=== PATIENT | male | born 1945 | race Caucasian/White ===

== ENCOUNTER → 2016-07-22 | Outpatient (CLI) | payer OTHER, MEDICARE ==
[~2016-07-22] MED LIST: ASCO500T3 PO; ASPI81TA57 PO; ATOR-26 PO; CALC-393 PO; CYAN500T13 PO; DILT180C PO; HYDR25TA5 PO; IBUP-103 PO; LSN40 PO; MAGNESIUM PO; MULT-506 PO; OMEP20TA PO; VITA400C3 PO
[2016-07-22 13:39] LABS: ALT/SGPT 34 U/L (12-78); BLOOD UREA NITROGEN 19 mg/dl (7-18); BUN/CREATININE RATIO 17.4 (10-20); CALCIUM 8.9 mg/dl (8.5-10.1); CARBON DIOXIDE 33 mmol/L (21-32); CHLORIDE 106 mmol/L (98-107); CHOLESTEROL 131 mg/dl (0-200); GLUCOSE 93 mg/dl (70-99); POTASSIUM 3.8 mmol/L (3.5-5.1); SODIUM 144 mmol/L (136-145); TRIGLYCERIDES 179 mg/dl (0-150); VERY LOW DENSITY LIPOPROT CALC 36 mg/dl
[2016-07-22 13:43] LABS: ALB/GLOB RATIO 1.1 (0.9-2); ALKALINE PHOSPHATASE 112 U/L (45-117); AST/SGOT 20 U/L (15-37); CHOLESTEROL/HDL RATIO 3.6; HDL CHOLESTEROL 36 mg/dl; LDL CHOLESTEROL CALCULATED 59 mg/dl
== END | disposition home or self-care (01) ==
LOC: C.LABPVFM 08:10
PROVIDERS: ATTEND Nurse Practitioner Family
DX: E78.5 Hyperlipidemia, unspecified (principal); I10 Essential (primary) hypertension

== ENCOUNTER → 2017-02-03 | Outpatient (CLI) | payer OTHER, MEDICARE ==
[2017-02-03 13:32] LABS: ALKALINE PHOSPHATASE 118 U/L (45-117); ALT/SGPT 43 U/L (12-78); BLOOD UREA NITROGEN 23 mg/dl (7-18); BUN/CREATININE RATIO 19.1 (10-20); CALCIUM 9.1 mg/dl (8.5-10.1); CARBON DIOXIDE 31 mmol/L (21-32); CHLORIDE 105 mmol/L (98-107); CHOLESTEROL 153 mg/dl (0-200); CHOLESTEROL/HDL RATIO 4.5; GLUCOSE 100 mg/dl (70-99); HDL CHOLESTEROL 34 mg/dl; LDL CHOLESTEROL CALCULATED 70 mg/dl; POTASSIUM 3.7 mmol/L (3.5-5.1); SODIUM 141 mmol/L (136-145); TRIGLYCERIDES 243 mg/dl (0-150); VERY LOW DENSITY LIPOPROT CALC 49 mg/dl
[2017-02-03 13:35] LABS: ALB/GLOB RATIO 1.1 (0.9-2); AST/SGOT 28 U/L (15-37)
== END | disposition home or self-care (01) ==
LOC: C.LABPVFM 08:27
PROVIDERS: ATTEND Nurse Practitioner Family
DX: E78.5 Hyperlipidemia, unspecified (principal); I10 Essential (primary) hypertension

== ENCOUNTER → 2017-07-21 | Outpatient (CLI) | payer OTHER, MEDICARE | END | disposition home or self-care (01) | LOC: C.LAB1850 07:58 | PROVIDERS: ATTEND Nurse Practitioner Family | DX: R76.8 Other specified abnormal immunological findings in serum (principal) ==

== ENCOUNTER 2020-11-22 11:32 | Inpatient (IN) ==
[2020-11-22 13:39] LABS: Basophils # (auto) 0.04 K/uL (0-0.2); Basophils % (auto) 0.3 %; Eosinophils # (auto) 0.27 K/uL (0-0.5); Eosinophils % (auto) 2.2 %; Hematocrit (blood only) 44.6 % (42-52); Hemoglobin 15.1 g/dL (14.0-18.0); Immature Granulocytes # (auto) 0.04 K/uL (0.00-0.02); Immature Granulocytes % (auto) 0.3 %; Lymphocytes # (auto) 0.86 K/uL (1.2-3.4); Lymphocytes % (auto) 6.9 %; Mean Corpuscular Hemoglobin 31.5 pg (25-34); Mean Corpuscular Hgb Conc 33.9 g/dL (32-36); Mean Corpuscular Volume 92.9 fL (80-100); Mean Platelet Volume 11.3 fL (7.4-10.4); Monocytes # (auto) 1.28 K/uL (0.11-0.59); Monocytes % (auto) 10.3 %; Neutrophils # (auto) 9.95 K/uL (1.4-6.5); Platelet Count 327 K/uL (130-400); RDW Coefficient of Variation 15.3 % (11.5-14.5); RDW Standard Deviation 51.9 fL (36.4-46.3); White Blood Count 12.44 K/uL (4.8-10.8)
--- NOTE | 2020-11-22 14:10 | Emergency Department Note ---
History of Present Illness General Chief complaint: Weakness Stated complaint: NOT EATING, ALWAYS SLEEPING, COLD, PAIN Time Seen by Provider: 11/22/20 13:52 Source: patient and family ( who is at the bedside) Mode of arrival: ambulatory Limitations: no limitations History of Present Illness Maximum Pain Intensity: 0 This patient is a 75-year-old male who comes in after not feeling well since the beginning of October. He said he started with an ear infection which was inner and outer. 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 He finished steroids last week the Ballard's palsy is gotten significantly better but he just does not feel well has not been eating or drinking much she has decreased energ y. No focal numbness or weakness had a little bit of a cough. No fever or chills. He says he cannot get in with his primary care doctor so he came here. No change in vision. No rash no known tick bite. He said at one point he was having chest pain in the evening for 2 weeks but none recently. He has had his Covid vaccine. He says his ear and head hurt at times but denies a headache now. He sees says is very sensitive to cold. No sick contacts. Home Medications Medication Instructions Recorded Confirmed Type Lactobacillus 1 cap PO QAM cap 11/19/18 11/22/20 History acidophilus-Bifidobac.animalis 31 billion cell capsule cetirizine 10 mg tablet 10 mg PO DAILY PRN #90 tab 11/19/18 11/22/20 Rx cyanocobalamin (vitamin B-12) 100 100 mcg PO QAM tab 11/19/18 11/22/20 History mcg tablet ibuprofen 200 mg tablet 200 mg PO Q6H PRN tab 11/19/18 11/22/20 History multivitamin with minerals 1 tab PO QAM tab 11/19/18 11/22/20 History (Multiple Vitamin-Minerals) omeprazole 20 mg capsule,delayed 20 mg PO QAM cap 11/19/18 11/22/20 History release vitamin E (dl, acetate) 400 unit 400 units PO QAM 11/19/18 11/22/20 History capsule ascorbic acid (vitamin C) 500 mg 500 mg PO QAM 05/07/19 11/22/20 History tablet hydrocortisone 2.5 % topical cream 1 appln TOP BID PRN #30 gm 06/16/19 11/22/20 Rx ketoconazole 2 % topical cream 1 appln TOPICAL DAILY #30 gm 06/16/19 11/22/20 Rx calcium carbonate 600 mg calcium 600 mg PO QAM tab 09/04/19 11/22/20 History (1,500 mg) tablet atorvastatin 80 mg tablet 80 mg PO QPM #90 tab 02/27/20 11/22/20 Rx metoprolol succinate 25 mg 12.5 mg PO DAILY #45 tab 08/09/20 11/22/20 Rx tablet,extended release 24 hr promethazine-DM 6.25 mg-15 mg/5 mL 5 ml PO Q6H PRN #473 ml 10/06/20 11/22/20 Rx oral syrup lisinopril 40 mg tablet 40 mg PO DAILY #90 tab 10/14/20 11/22/20 Rx potassium chloride 20 mEq 20 meq PO DAILY #90 tab 11/03/20 11/22/20 Rx tablet,extended release(part/cryst) hydrochlorothiazide 25 mg tablet 12.5 mg PO QAM tab 11/04/20 11/22/20 History acetazolamide 250 mg tablet 250 mg PO DAILY 11/22/20 11/22/20 History Allergies Allergy/AdvReac Type Severity Reaction Status Date / Time amlodipine AdvReac Mild nausea Verified 11/22/20 20:10 Past Med/Surg History Medical History (Updated 11/22/20 @ 19:29 by Issac Edmondson MD) Family history of coronary artery disease GERD (gastroesophageal reflux disease) GI (gastrointestinal bleed) (12/20/13) Hearing deficit LEFT JORGENSEN History of TIA (transient ischemic attack) 3O YEARS AGO HTN (hypertension) Hyperlipidemia Lower GI bleed Meniere's disease Osteoarthritis Surgical History History of arthroscopy of both knees History of arthroscopy of shoulder History of colonoscopy History of hernia repair X 2 History of knee replacement BL History of total knee arthroplasty Status post laparoscopic hernia repair Family History Mother Stroke Diabetes Father FHx: deafness or hearing loss Hypertension Scarlet fever Heart disease Myocardial infarction Other Coronary heart disease Family history of coronary artery disease Denies family history of Ovarian cancer Prostate cancer Breast cancer Bleeding disorder Colorectal cancer History of malignant hyperthermia Social History Smoking Status: Never smoker Second Hand Exposure: Yes ( A CHILD); Hx Alcohol Use: No Hx Substance Use: No Preferred Language: Azerbaijani Communication Ability: Effective Credit Assistant Required: No Beliefs That Will Affect Care: None marital status: Current Living Situation: Spouse current occupational status: retired Other Information That Helps Us Care for You: No Feels Safe at Home: Yes caffeine: Yes Dental Care, Regularly: No Physical Activity Frequency: 3-4 Times per Week Seatbelt Use: always Sunscreen Use: No Assistive Devices: None, Glasses and Hearing Aid - Left Review of Systems A total of 10 systems reviewed and were otherwise negative Physical Exam Vital Signs Vital Signs - 24 hr 11/22/20 11:39 11/22/20 14:47 11/22/20 16:45 Temperature 36.5 C Temperature Source Temporal Artery Scan Pulse Rate 67 60 Pulse Rate [Left Apical] 67 Pulse Rate from SpO2 Sensor 60 Pulse Rhythm Regular Pulse Rhythm [Left Apical] Regular Pulse Strength Normal Pulse Strength [Left Apical] Normal Respiratory Rate 16 18 14 Respiratory Effort / Characteristics Non-Labored Non-Labored Spontaneous Respiratory Depth Normal Normal Respiratory Pattern Regular Regular Blood Pressure 110/70 128/76 Blood Pressure [Left Arm] 123/65 Blood Pressure Mean 83 93 Blood Pressure Mean [Left Arm] 84 Blood Pressure Position Sitting Blood Pressure Position [Left Arm] Lying Pulse Oximetry 98 99 99 Oxygen Delivery Method Room Air Room Air Sepsis Recent Fever Within 48 Hours No Sepsis New/Unexplained Change in Mental Status N/A Sepsis Action Taken by Nursing No Action Required 11/22/20 16:47 11/22/20 17:00 11/22/20 17:30 Temperature Temperature Source Pulse Rate 64 66 63 Pulse Rate [Left Apical] Pulse Rate from SpO2 Sensor 63 76 Pulse Rhythm Pulse Rhythm [Left Apical] Pulse Strength Pulse Strength [Left Apical] Respiratory Rate 14 16 9 L Respiratory Effort / Characteristics Respiratory Depth Respiratory Pattern Blood Pressure 123/65 125/68 122/79 Blood Pressure [Left Arm] Blood Pressure Mean 84 87 93 Blood Pressure Mean [Left Arm] Blood Pressure Position Blood Pressure Position [Left Arm] Pulse Oximetry 99 99 Oxygen Delivery Method Room Air Sepsis Recent Fever Within 48 Hours Sepsis New/Unexplained Change in Mental Status Sepsis Action Taken by Nursing General: Well developed well nourished older male who appears in no acute distress, breathing comfortably on room air. Normal speech HEENT: Normal cephalic atraumatic. Pupils are equal round and reactive to light. Extraocular movements are intact. Oropharynx is pink with moist mucous membranes. No swelling of the mouth lips or tongue. No significant tenderness over the mastoid. The pinna is normal. No facial asymmetry or droop. He is able to close his right eye. Does seem slightly weak in the forehead compared to the left. He has no asymmetry of his nasolabial fold or smile. Neck: Supple with a midline trachea. No meningeal signs or stiffness, no JVD or bruits. No Stridor. Chest: Clear to auscultation bilaterally. No wheezes or rhonchi. No increased work of breathing. Heart: Regular rate and rhythm without murmurs or gallops. Abdomen: Soft nontender, nondistended without rebound guarding or rigidity. Extremities: No cyanosis clubbing or edema. No calf tenderness or assymetry Spine/Back. Non tender to palpation. No CVA tenderness Skin: Good turgor without rashes. Neurologic exam: Cranial nerves two through 12 are intact. Motor and sensation are intact and symmetrical throughout. Course Administered Medications Atorvastatin Calcium (Atorvastatin 40 Mg Tab) 80 mg PO QPM MARISEL Stop: 12/22/20 20:59 Last Admin: 11/22/20 20:47 Dose: 80 mg Documented by: [id number] Doxycycline Hyclate (Doxycycline Hyclate 100 Mg Cap) 100 mg PO BID MARISEL Stop: 12/02/20 20:59 Last Admin: 11/22/20 20:47 Dose: 100 mg Documented by: [id number] Heparin Sodium (Porcine) (Heparin Sod 5,000 Unit/0.5 Ml Vial) 5,000 units SQ Q8 MARISEL Stop: 12/22/20 21:59 Last Admin: 11/22/20 20:51 Dose: Not Given Documented by: [id number] Sodium Chloride (Nss 1000ml) 1,000 mls @ 100 mls/hr IV .Q10H MARISEL Stop: 12/22/20 19:49 Last Admin: 11/22/20 20:16 Dose: 100 mls/hr Documented by: [id number] Discontinued Medications Sodium Chloride (Nss 1000ml) 1,000 mls @ 999 mls/hr IV .Q1H1M ONE Stop: 11/22/20 16:16 Last Infusion: 11/22/20 16:45 Dose: 0 mls/hr Documented by: [id number] Admin: 11/22/20 15:38 Dose: 999 mls/hr Documented by: [id number] Medical Decision Making Differential Diagnosis Ballard's palsy, dehydration, cardiac disease, infection, mastoiditis, tickborne illness, cardiac disease, electrolyte or metabolic abnormality, Covid Medical Records Attestation: I reviewed the patient's medical records. Home Medications Current Medication List: was personally reviewed by mt Laboratory Data Attestation: I reviewed the patient's lab results. Result diagrams: 11/22/20 13:18 11/22/20 14:15 Lab Results 11/22/20 11/22/20 11/22/20 Range/Units 13:18 13:18 13:28 WBC 12.44 H (4.8-10.8) K/uL RBC 4.80 (4.7-6.1) M/uL Hgb 15.1 (14.0-18.0) g/dL Hct 44.6 (42-52) % MCV 92.9 (80-100) fL MCH 31.5 (25-34) pg MCHC 33.9 (32-36) g/dL RDW Std Deviation 51.9 H (36.4-46.3) fL RDW Coeff of Zulma 15.3 H (11.5-14.5) % Plt Count 327 (130-400) K/uL MPV 11.3 H (7.4-10.4) fL Immature Gran % (Auto) 0.3 % Neut % (Auto) 80.0 % Lymph % (Auto) 6.9 % Andrew % (Auto) 10.3 % Eos % (Auto) 2.2 % Baso % (Auto) 0.3 % Neut # (Auto) 9.95 H (1.4-6.5) K/uL Lymph # (Auto) 0.86 L (1.2-3.4) K/uL Andrew # (Auto) 1.28 H (0.11-0.59) K/uL Eos # (Auto) 0.27 (0-0.5) K/uL Baso # (Auto) 0.04 (0-0.2) K/uL Immature Gran # (Auto) 0.04 H (0.00-0.02) K/uL Sodium Cancelled Potassium Cancelled Chloride Cancelled Carbon Dioxide Cancelled Anion Gap Cancelled BUN Cancelled Creatinine Cancelled Est Cr Clr Drug Dosing Cancelled Est GFR ( Amer) Cancelled Est GFR (Non-Af Amer) Cancelled BUN/Creatinine Ratio Cancelled Glucose Cancelled Calcium Cancelled Total Bilirubin Cancelled AST Cancelled ALT Cancelled Alkaline Phosphatase Cancelled Troponin I Cancelled Total Protein Cancelled Albumin Cancelled Globulin Cancelled Albumin/Globulin Ratio Cancelled TSH Cancelled Urine Color Urine Appearance (Clear) Urine pH (4.5-7.5) Ur Specific [place] (1.000-1.030) Urine Protein (Negative) Urine Glucose (UA) (Negative) Urine Ketones (Negative) Urine Blood (Negative) Urine Nitrite (Negative) Urine Bilirubin (Negative) Urine Urobilinogen (Negative) Ur Leukocyte Esterase (Negative) Urine WBC (Auto) (0-5) /hpf Urine RBC (Auto) (0-4) /hpf U Hyaline Cast (Auto) (0-5) /lpf U Epithel Cells (Auto) (0-5) /lpf Urine Bacteria (Auto) (Negative) Ur Renal Epithelial Cell WBC Casts (0) /lpf Anaplasma Smear See Comment Lyme Disease IgG Ab (Negative) Lyme Disease IgM Ab (Negative) COVID-19 Eval Order SARS-CoV-2 (PCR) (Negative) 11/22/20 11/22/20 11/22/20 Range/Units 14:15 14:15 14:30 WBC (4.8-10.8) K/uL RBC (4.7-6.1) M/uL Hgb (14.0-18.0) g/dL Hct (42-52) % MCV (80-100) fL MCH (25-34) pg MCHC (32-36) g/dL RDW Std Deviation (36.4-46.3) fL RDW Coeff of Zulma (11.5-14.5) % Plt Count (130-400) K/uL MPV (7.4-10.4) fL Immature Gran % (Auto) % Neut % (Auto) % Lymph % (Auto) % Andrew % (Auto) % Eos % (Auto) % Baso % (Auto) % Neut # (Auto) (1.4-6.5) K/uL Lymph # (Auto) (1.2-3.4) K/uL Andrew # (Auto) (0.11-0.59) K/uL Eos # (Auto) (0-0.5) K/uL Baso # (Auto) (0-0.2) K/uL Immature Gran # (Auto) (0.00-0.02) K/uL Sodium 145 Potassium 3.3 L Chloride 120 H Carbon Dioxide 11 L Anion Gap 15.0 H BUN 133 H Creatinine 3.67 H Est Cr Clr Drug Dosing 18.5 Est GFR ( Amer) 17.9 Est GFR (Non-Af Amer) 15.4 BUN/Creatinine Ratio 36.3 H Glucose 103 H Calcium 8.8 Total Bilirubin 0.3 AST 7 L ALT 32 Alkaline Phosphatase 83 Troponin I < 0.015 Total Protein 6.8 Albumin 3.6 Globulin 3.2 Albumin/Globulin Ratio 1.1 TSH 0.495 Urine Color Yellow Urine Appearance Clear (Clear) Urine pH 5.5 (4.5-7.5) Ur Specific [place] 1.016 (1.000-1.030) Urine Protein 1+ H (Negative) Urine Glucose (UA) Negative (Negative) Urine Ketones Trace H (Negative) Urine Blood Negative (Negative) Urine Nitrite Negative (Negative) Urine Bilirubin Negative (Negative) Urine Urobilinogen Negative (Negative) Ur Leukocyte Esterase Negative (Negative) Urine WBC (Auto) 1-5 (0-5) /hpf Urine RBC (Auto) 0-4 (0-4) /hpf U Hyaline Cast (Auto) 5-10 H (0-5) /lpf U Epithel Cells (Auto) >30 H (0-5) /lpf Urine Bacteria (Auto) Negative (Negative) Ur Renal Epithelial Cell Not Reportable WBC Casts 5-10 H (0) /lpf Anaplasma Smear Lyme Disease IgG Ab Negative (Negative) Lyme Disease IgM Ab Negative (Negative) COVID-19 Eval Order SARS-CoV-2 (PCR) (Negative) 11/22/20 11/22/20 Range/Units 15:37 15:37 WBC (4.8-10.8) K/uL RBC (4.7-6.1) M/uL Hgb (14.0-18.0) g/dL Hct (42-52) % MCV (80-100) fL MCH (25-34) pg MCHC (32-36) g/dL RDW Std Deviation (36.4-46.3) fL RDW Coeff of Zulma (11.5-14.5) % Plt Count (130-400) K/uL MPV (7.4-10.4) fL Immature Gran % (Auto) % Neut % (Auto) % Lymph % (Auto) % Andrew % (Auto) % Eos % (Auto) % Baso % (Auto) % Neut # (Auto) (1.4-6.5) K/uL Lymph # (Auto) (1.2-3.4) K/uL Andrew # (Auto) (0.11-0.59) K/uL Eos # (Auto) (0-0.5) K/uL Baso # (Auto) (0-0.2) K/uL Immature Gran # (Auto) (0.00-0.02) K/uL Sodium Potassium Chloride Carbon Dioxide Anion Gap BUN Creatinine Est Cr Clr Drug Dosing Est GFR ( Amer) Est GFR (Non-Af Amer) BUN/Creatinine Ratio Glucose Calcium Total Bilirubin AST ALT Alkaline Phosphatase Troponin I Total Protein Albumin Globulin Albumin/Globulin Ratio TSH Urine Color Urine Appearance (Clear) Urine pH (4.5-7.5) Ur Specific [place] (1.000-1.030) Urine Protein (Negative) Urine Glucose (UA) (Negative) Urine Ketones (Negative) Urine Blood (Negative) Urine Nitrite (Negative) Urine Bilirubin (Negative) Urine Urobilinogen (Negative) Ur Leukocyte Esterase (Negative) Urine WBC (Auto) (0-5) /hpf Urine RBC (Auto) (0-4) /hpf U Hyaline Cast (Auto) (0-5) /lpf U Epithel Cells (Auto) (0-5) /lpf Urine Bacteria (Auto) (Negative) Ur Renal Epithelial Cell WBC Casts (0) /lpf Anaplasma Smear Lyme Disease IgG Ab (Negative) Lyme Disease IgM Ab (Negative) COVID-19 Eval Order Covid19 at [facility] SARS-CoV-2 (PCR) NEGATIVE (Negative) Imaging Data Attestation: I personally reviewed and interpreted this imaging study as follows: Radiologist's Impression: Chest X-Ray 11/22/20 11:58 XR chest 1V portable CLINICAL HISTORY: weakness COMPARISON STUDY: Chest radiograph December 20, 2013. FINDINGS: Lung volumes are diminished. There is no pneumothorax or pleural effusion. Cardiomediastinal silhouette is stable. Basilar opacities are noted. There is interstitial thickening within the left lower lung. IMPRESSION: Interstitial thickening and bibasilar opacities. The findings favor an infectious process. Pulmonary edema could appear similar although is considered less likely. Radiographic follow up to ensure resolution is recommended. ACT 112: Negative or not required by law. Electronically signed by: Zenon Caballero M.D. 11/22/2020 2:[address] 11/22/20 14:03 CT head/brain wo con CLINICAL HISTORY: 75 years-old Male with rt headache and ear pain. Acute headache TECHNIQUE: Multiple axial CT images of the head were obtained without contrast. A dose lowering technique was utilized adhering to the principles of ALARA. CT DOSE: 690.05 mGycm COMPARISON: Head CT 08/02/2018 FINDINGS: No acute intracranial hemorrhage, midline shift, intracranial mass, hydro cephalus, territorial ischemia or abnormal extra-axial collection. Age-related involutional changes. Cerebral vascular calcifications. Mild white matter hypodensities suggestive of chronic microvascular ischemic disease. The calvarium is intact. The paranasal sinuses, mastoid air cells, and middle ear cavities are clear. IMPRESSION: No acute intracranial abnormality. ACT 112: Negative or not required by law. The above report was generated using voice recognition software. It may contain grammatical, syntax or spelling errors. Electronically signed by: Renan Schumacher M.D. 11/22/2020 2:55 PM ECG Data Attestation: I personally reviewed and interpreted this ECG as follows: Indication: + weakness Rate (beats per minute): 63 ECG Intervals/blocks: + Right Bundle branch block ECG [place]: + Normal ECG ST segments: + Normal ST segments ECG Findings: no PACs or no PVCs Comparison ECG Date: from (05/09/19) Change: no significant change MDM Narrative This patient comes in as scribed above he has had generalized weakness he has a right ear infection a Ballard's palsy. This seem to be doing better. He has no neurologic deficits with exception of maybe some slight weakness of the right forehead with closure of the eye. He is afebrile here and has no headache at present has no meningeal signs or stiffness. IV access was established and he was hydrated with an IV normal saline bolus. EKG, CAT scan of the head multiple, blood testing was obtained. He was reassessed frequently. He is remained stable. His BUN and creatinine are significantly elevated and it may be prerenal but he does need to come in for the hospital. He does have some increased interstitial markings in the base and could have a CHF component as well. His CO2 is also low. He has no acute EKG changes and his potassium is normal. Nothing suggest infection. He has no acute neurologic deficits with exception of a peripheral 7th nerve palsy which is resolving. Given his renal failure, I have consulted the [facility] hospitalist to see him in ER for these measures Continuous cardiac monitoring: An order was placed in EMR for continuous cardiac monitoring. He was noted to be in normal sinus rhythm with a rate of 65. Impression & Plan Acute renal failure, Weakness, CHF (congestive heart failure), H/O Ballard's palsy Discharge Plan Visit Data Chief Complaint: Weakness Stated Complaint: NOT EATING, ALWAYS SLEEPING, COLD, PAIN ED Provider: Issac Edmondson Discharge Problem: Acute renal failure, Weakness, CHF (congestive heart failure), H/O Ballard's palsy Patient Disposition: Admitted As Inpatient Discharge Instructions Interventions: ED Discharge Assessment Last Done: 11/22/20 19:25 Discharge Problem: Acute renal failure Qualifiers: Acute renal failure type: unspecified Qualified Code(s): N17.9 - Acute kidney failure, unspecified CHF (congestive heart failure) Qualifiers: Heart failure type: unspecified Heart failure chronicity: acute Qualified Code(s): I50.9 - Heart failure, unspecified
[2020-11-22 14:49] LABS: Alanine Aminotransferase 32 U/L (12-78); Albumin Level 3.6 gm/dl (3.4-5.0); Aspartate Aminotransferase 7 U/L (15-37); BUN Creatinine Ratio 36.3 (10-20); Blood Urea Nitrogen 133 mg/dl (7-18); Calcium 8.8 mg/dl (8.5-10.1); Carbon Dioxide 11 mmol/L (21-32); Chloride 120 mmol/L (98-107); Creatinine Clr Calc Pharmacy 18.5 ml/min; Est GFR (African American) 17.9 ml/min; Est GFR (Non-African American) 15.4 ml/min; Glucose 103 mg/dl (70-99); Potassium 3.3 mmol/L (3.5-5.1); Sodium 145 mmol/L (136-145)
[2020-11-22 14:53] LABS: Appearance Urine Clear (Clear); Bacteria Urine Automated Negative (Negative); Bilirubin Urine Negative (Negative); Blood Urine Negative (Negative); Color Urine Yellow; Epithelial Cell Urine Auto >30 /lpf (0-5); Glucose Urine UA Negative (Negative); Ketones Urine Trace (Negative); Leukocyte Esterase Urine Negative (Negative); Nitrite Urine Negative (Negative); Protein Urine 1+ (Negative); RBC Urine Automated 0-4 /hpf (0-4); Specific Gravity Urine 1.016 (1.000-1.030); Urobilinogen Urine Negative (Negative); pH Urine 5.5 (4.5-7.5)
--- NOTE | 2020-11-22 14:56 | CT Scan Report ---
CT head/brain wo con CLINICAL HISTORY: 75 years-old Male with rt headache and ear pain. Acute headache TECHNIQUE: Multiple axial CT images of the head were obtained without contrast. A dose lowering tech nique was utilized adhering to the principles of ALARA. CT DOSE: 690.05 mGycm COMPARISON: Head CT 08/02/2018 FINDINGS: No acute intracranial hemorrhage, midline shift, intracranial mass, hydrocephalus, territorial ischem ia or abnormal extra-axial collection. Age-related involutional changes. Cerebral vascular calcificat ions. Mild white matter hypodensities suggestive of chronic microvascular ischemic disease. The calvarium is intact. The paranasal sinuses, mastoid air cells, and middle ear cavities are clear . IMPRESSION: No acute intracranial abnormality. ACT 112: Negative or not required by law. The above report was generated using voice recognition software. It may contain grammatical, syntax o r spelling errors. Electronically signed by: Renan Schumacher M.D. 11/22/2020 2:55 PM
[2020-11-22 14:59] LABS: Albumin Globulin Ratio 1.1 (0.9-2); Alkaline Phosphatase 83 U/L (45-117); Bilirubin,Total 0.3 mg/dl (0.2-1); Globulin 3.2 gm/dl (2.5-4.0); Thyroid Stimulating Hormone 0.495 uIu/ml (0.300-4.500); Total Protein 6.8 gm/dl (6.4-8.2); Troponin I < 0.015 ng/ml (0-0.045)
--- NOTE | 2020-11-22 15:00 | XRay Report ---
XR chest 1V portable CLINICAL HISTORY: weakness COMPARISON STUDY: Chest radiograph December 20, 2013. FINDINGS: Lung volumes are diminished. There is no pneumothorax or pleural effusion. Cardiomediastina l silhouette is stable. Basilar opacities are noted. There is interstitial thickening within the left lower lung. IMPRESSION: Interstitial thickening and bibasilar opacities. The findings favor an infectious proces s. Pulmonary edema could appear similar although is considered less likely. Radiographic follow up to ensure resolution is recommended. ACT 112: Negative or not required by law. Electronically signed by: Zenon Caballero M.D. 11/22/2020 2:58 PM
[2020-11-22] MEDS ORDERED: SODIUM CHLORIDE 0.9% 1000ML 1,000 ML IV ONE (15:16)
[2020-11-22 15:20] LABS: Lyme Ab IgG w/WB Rflx Negative (Negative); Lyme Ab IgM w/WB Rflx Negative (Negative)
--- NOTE | 2020-11-22 17:49 | History & Physical Report ---
Date of Service November 22, 2020 Assessment & Plan (1) Failure to thrive: Plan: Patient is dehydrated by exam and labs are Ballard's palsy resolving, concern for possible Lyme disease or other tickborne illness considering subsequent symptoms Admit to a monitored bed Hydrate gently with normal saline. Hold lisinopril, diuretics for now Replete potassium Check magnesium Lyme and anaplasmosis titer sent from ER. For now, would start empiric treatment with doxycycline until these are resulted PT/OT evaluation Abnormal chest x-ray findings, previously labeled as pneumonia. Will check noncontrast CT (2) Coronary artery disease: Plan: Continue medications as per outpatient including atorvastatin, metoprolol (3) Hyperlipidemia: Plan: Atorvastatin as noted above (4) Acid reflux: Plan: Omeprazole 20 mg as an outpatient, changed to pharmacy equivalent History of Present Illness Chief Complaint: failure to thrive Primary Care Provider: Katie Coelho MD This is a 75-year-old male with past medical history of GERD, hypertension, hyperlipidemia that presents complaining of failure to thrive. He is accompanied with his and both are good historians. Patient states that he recently had a severe ear infection. Not long after this, patient developed a Ballard's palsy of the right side of his face. He was seen in the emergency room on 10/18. He was discharged to his primary care physician saw him on 10/22. Not long after this, patient started having generalized fatigue. His appetite was quite poor and he was eating and drinking very little. He denied any overt fevers. He also denies any chest pain or shortness of breath. He did admit to the ER physician that he had some a mild cough. He denies any rashes, arthralgias, or myalgias. He does feel that his Ballard's palsy has improved significantly. Patient and admit that they did not have any further testing since his ER visit. Evaluation emergency room, patient was found to be acute renal failure which I suspect may be secondary to dehydration. His potassium is low and his white count is mildly elevated. Patient is now being admitted for further invest igation of his dehydration and failure to thrive. Allergies Allergy/AdvReac Type Severity Reaction Status Date / Time amlodipine AdvReac nausea Verified 11/22/20 15:04 Home Medications Medication Instructions Recorded Confirmed Type Lactobacillus 1 cap PO QAM cap 11/19/18 11/22/20 History acidophilus-Bifidobac.animalis 31 billion cell capsule cetirizine 10 mg tablet 10 mg PO DAILY PRN #90 tab 11/19/18 11/22/20 Rx cyanocobalamin (vitamin B-12) 100 100 mcg PO QAM tab 11/19/18 11/22/20 History mcg tablet ibuprofen 200 mg tablet 200 mg PO Q6H PRN tab 11/19/18 11/22/20 History multivitamin with minerals 1 tab PO QAM tab 11/19/18 11/22/20 History (Multiple Vitamin-Minerals) omeprazole 20 mg capsule,delayed 20 mg PO QAM cap 11/19/18 11/22/20 History release vitamin E (dl, acetate) 400 unit 400 units PO QAM 11/19/18 11/22/20 History capsule ascorbic acid (vitamin C) 500 mg 500 mg PO QAM 05/07/19 11/22/20 History tablet hydrocortisone 2.5 % topical cream 1 appln TOP BID PRN #30 gm 06/16/19 11/22/20 Rx ketoconazole 2 % topical cream 1 appln TOPICAL DAILY #30 gm 06/16/19 11/22/20 Rx calcium carbonate 600 mg calcium 600 mg PO QAM tab 09/04/19 11/22/20 History (1,500 mg) tablet atorvastatin 80 mg tablet 80 mg PO QPM #90 tab 02/27/20 11/22/20 Rx metoprolol succinate 25 mg 12.5 mg PO DAILY #45 tab 08/09/20 11/22/20 Rx tablet,extended release 24 hr promethazine-DM 6.25 mg-15 mg/5 mL 5 ml PO Q6H PRN #473 ml 10/06/20 11/22/20 Rx oral syrup lisinopril 40 mg tablet 40 mg PO DAILY #90 tab 10/14/20 11/22/20 Rx potassium chloride 20 mEq 20 meq PO DAILY #90 tab 11/03/20 11/22/20 Rx tablet,extended release(part/cryst) hydrochlorothiazide 25 mg tablet 12.5 mg PO QAM tab 11/04/20 11/22/20 History acetazolamide 250 mg tablet 250 mg PO DAILY 11/22/20 11/22/20 History Past Med/Surg History Medical History (Updated 11/22/20 @ 17:43 by Jama Yee DO) Family history of coronary artery disease GERD (gastroesophageal reflux disease) GI (gastrointestinal bleed) (12/20/13) Hearing deficit LEFT JORGENSEN History of TIA (transient ischemic attack) 3O YEARS AGO HTN (hypertension) Hyperlipidemia Lower GI bleed Meniere's disease Osteoarthritis Surgical History History of arthroscopy of both knees History of arthroscopy of shoulder History of colonoscopy History of hernia repair X 2 History of knee replacement BL History of total knee arthroplasty Status post laparoscopic hernia repair Family History Mother Stroke Diabetes Father FHx: deafness or hearing loss Hypertension Scarlet fever Heart disease Myocardial infarction Other Coronary heart disease Family history of coronary artery disease Denies family history of Ovarian cancer Prostate cancer Breast cancer Bleeding disorder Colorectal cancer History of malignant hyperthermia Social History Smoking Status: Never smoker Second Hand Exposure: Yes ( A CHILD); Hx Alcohol Use: No Hx Substance Use: No Preferred Language: Romanian Communication Ability: Effective Chief Clinical Officer Required: No Beliefs That Will Affect Care: None marital status: Current Living Situation: Spouse current occupational status: retired Feels Safe at Home: Yes caffeine: Yes Dental Care, Regularly: No Physical Activity Frequency: 3-4 Times per Week Seatbelt Use: always Sunscreen Use: No Assistive Devices: Glasses and Hearing Aid - Left Review of Systems Constitutional: + fatigue, + malaise, + weakness and + anorexia; no fever, no chills, no weight loss and no weight gain Eyes: as per Subjective / HPI Respiratory: no cough, no chest congestion, no dyspnea and no dyspnea on exertion Cardiovascular: no chest pain, no orthopnea, no palpitations, no lightheadedness and no edema Gastrointestinal: no abdominal pain, no nausea, no vomiting, no constipation and no diarrhea/loose stools Genitourinary: no dysuria, no difficulty urinating, no urinary hesitancy or no urinary incontinence Musculoskeletal: no back pain, no neck pain, no joint pain, no stiffness and no myalgia Integumentary: no rash Neurologic: + generalized weakness; no gait abnormality, no unsteadiness and no falls Physical Exam Constitutional: cooperative; no acute distress ENMT: Minimal right-sided Ballard's palsy Neck: trachea midline, no thyromegaly Respiratory: normal respiratory effort Auscultation: lungs clear to auscultation bilaterally; no crackles, no rales, no rhonchi and no wheezes Cardiovascular: Rate/Rhythm: regular rate and regular rhythm Heart Sounds: normal S1 and normal S2 Gastrointestinal (Abdomen): Inspection/Auscultation: abdomen normal to inspection Percussion/Palpation: abdomen soft; abdomen nontender, no guarding, abdomen not rigid and no hepatosplenomegaly Skin: no rashes, warm and dry Results & Data Results & Data ([facility]) Vital Signs (Past 12 Hours) Vital Signs Temp Pulse Pulse Resp BP BP Pulse Ox 11/22/20 16:45 67 14 123/65 99 11/22/20 14:47 60 18 128/76 99 11/22/20 11:39 36.5 C 67 16 110/70 98 Laboratory Results Laboratory Results WBC 12.44 K/uL (4.8-10.8) H 11/22/20 13:18 RBC 4.80 M/uL (4.7-6.1) 11/22/20 13:18 Hgb 15.1 g/dL (14.0-18.0) 11/22/20 13:18 Hct 44.6 % (42-52) 11/22/20 13:18 MCV 92.9 fL (80-100) 11/22/20 13:18 MCH 31.5 pg (25-34) 11/22/20 13:18 MCHC 33.9 g/dL (32-36) 11/22/20 13:18 RDW Std Deviation 51.9 fL (36.4-46.3) H 11/22/20 13:18 RDW Coeff of [place] 15.3 % (11.5-14.5) H 11/22/20 13:18 Plt Count 327 K/uL (130-400) 11/22/20 13:18 MPV 11.3 fL (7.4-10.4) H 11/22/20 13:18 Immature Gran % (Auto) 0.3 % 11/22/20 13:18 Neut % (Auto) 80.0 % 11/22/20 13:18 Lymph % (Auto) 6.9 % 11/22/20 13:18 [place] % (Auto) 10.3 % 11/22/20 13:18 Eos % (Auto) 2.2 % 11/22/20 13:18 Baso % (Auto) 0.3 % 11/22/20 13:18 Neut # (Auto) 9.95 K/uL (1.4-6.5) H 11/22/20 13:18 Lymph # (Auto) 0.86 K/uL (1.2-3.4) L 11/22/20 13:18 [place] # (Auto) 1.28 K/uL (0.11-0.59) H 11/22/20 13:18 Eos # (Auto) 0.27 K/uL (0-0.5) 11/22/20 13:18 Baso # (Auto) 0.04 K/uL (0-0.2) 11/22/20 13:18 Immature Gran # (Auto) 0.04 K/uL (0.00-0.02) H 11/22/20 13:18 Sodium 145 mmol/L (136-145) 11/22/20 14:15 Potassium 3.3 mmol/L (3.5-5.1) L 11/22/20 14:15 Chloride 120 mmol/L (98-107) H 11/22/20 14:15 Carbon Dioxide 11 mmol/L (21-32) L 11/22/20 14:15 Anion Gap 15.0 (3-11) H 11/22/20 14:15 BUN 133 mg/dl (7-18) H 11/22/20 14:15 Creatinine 3.67 mg/dl (0.6-1.4) H 11/22/20 14:15 Est Cr Clr Drug Dosing 18.5 ml/min 11/22/20 14:15 Est GFR ( Amer) 17.9 ml/min 11/22/20 14:15 Est GFR (Non-Af Amer) 15.4 ml/min 11/22/20 14:15 BUN/Creatinine Ratio 36.3 (10-20) H 11/22/20 14:15 Glucose 103 mg/dl (70-99) H 11/22/20 14:15 Calcium 8.8 mg/dl (8.5-10.1) 11/22/20 14:15 Total Bilirubin 0.3 mg/dl (0.2-1) 11/22/20 14:15 AST 7 U/L (15-37) L 11/22/20 14:15 ALT 32 U/L (12-78) 11/22/20 14:15 Alkaline Phosphatase 83 U/L (45-117) 11/22/20 14:15 Troponin I < 0.015 ng/ml (0-0.045) 11/22/20 14:15 Total Protein 6.8 gm/dl (6.4-8.2) 11/22/20 14:15 Albumin 3.6 gm/dl (3.4-5.0) 11/22/20 14:15 Globulin 3.2 gm/dl (2.5-4.0) 11/22/20 14:15 Albumin/Globulin Ratio 1.1 (0.9-2) 11/22/20 14:15 TSH 0.495 uIu/ml (0.300-4.500) 11/22/20 14:15 Urine Color Yellow 11/22/20 14:30 Urine Appearance Clear (Clear) 11/22/20 14:30 Urine pH 5.5 (4.5-7.5) 11/22/20 14:30 Ur Specific [place] 1.016 (1.000-1.030) 11/22/20 14:30 Urine Protein 1+ (Negative) H 11/22/20 14:30 Urine Glucose (UA) Negative (Negative) 11/22/20 14:30 Urine Ketones Trace (Negative) H 11/22/20 14:30 Urine Blood Negative (Negative) 11/22/20 14:30 Urine Nitrite Negative (Negative) 11/22/20 14:30 Urine Bilirubin Negative (Negative) 11/22/20 14:30 Urine Urobilinogen Negative (Negative) 11/22/20 14:30 Ur Leukocyte Esterase Negative (Negative) 11/22/20 14:30 Urine WBC (Auto) 1-5 /hpf (0-5) 11/22/20 14:30 Urine RBC (Auto) 0-4 /hpf (0-4) 11/22/20 14:30 U Hyaline Cast (Auto) 5-10 /lpf (0-5) H 11/22/20 14:30 U Epithel Cells (Auto) >30 /lpf (0-5) H 11/22/20 14:30 Urine Bacteria (Auto) Negative (Negative) 11/22/20 14:30 Ur Renal Epithelial Cell Not Reportable 11/22/20 14:30 WBC Casts 5-10 /lpf (0) H 11/22/20 14:30 Anaplasma Smear See Comment 11/22/20 13:28 Lyme Disease IgG Ab Negative (Negative) 11/22/20 14:15 Lyme Disease IgM Ab Negative (Negative) 11/22/20 14:15 COVID-19 Eval Order Covid19 at [facility] 11/22/20 15:37 SARS-CoV-2 (PCR) NEGATIVE (Negative) 11/22/20 15:37 Impressions Chest X-Ray 11/22/20 11:58 XR chest 1V portable CLINICAL HISTORY: weakness COMPARISON STUDY: Chest radiograph December 20, 2013. FINDINGS: Lung volumes are diminished. There is no pneumothorax or pleural effusion. Cardiomediastinal silhouette is stable. Basilar opacities are noted. There is interstitial thickening within the left lower lung. IMPRESSION: Interstitial thickening and bibasilar opacities. The findings favor an infectious process. Pulmonary edema could appear similar although is considered less likely. Radiographic follow up to ensure resolution is recommended. ACT 112: Negative or not required by law. Electronically signed by: Zenon Caballero M.D. 11/22/2020 2:[address] 11/22/20 14:03 CT head/brain wo con CLINICAL HISTORY: 75 years-old Male with rt headache and ear pain. Acute headache TECHNIQUE: Multiple axial CT images of the head were obtained without contrast. A dose lowering technique was utilized adhering to the principles of ALARA. CT DOSE: 690.05 mGycm COMPARISON: Head CT 08/02/2018 FINDINGS: No acute intracranial hemorrhage, midline shift, intracranial mass, hydrocephalus, territorial ischemia or abnormal extra-axial collection. Age- related involutional changes. Cerebral vascular calcifications. Mild white matter hypodensities suggestive of chronic microvascular ischemic disease. The calvarium is intact. The paranasal sinuses, mastoid air cells, and middle ear cavities are clear. IMPRESSION: No acute intracranial abnormality. ACT 112: Negative or not required by law. The above report was generated using voice recognition software. It may contain grammatical, syntax or spelling errors. Electronically signed by: Renan Schumacher M.D. 11/22/2020 2:55 PM PG Care Time/CCT Total # of Minutes Spent Total Time Spent with Patient: Total time spent is greater than 50% in coordination of care (as documented) at patient's floor/unit and/or counseling patient: Coding Level of Care Code 29414 Initial Inpt Care Lvl 3 Diagnoses Coronary artery disease I25.10 Hyperlipidemia E78.5 Acid reflux K21.9 Failure to thrive
[2020-11-22] MEDS ORDERED: ACETAMINOPHEN 325 MG TAB PO PRN (19:50)
[2020-11-22] MEDS ORDERED: IBUPROFEN 200 MG TAB PO PRN (19:50)
[2020-11-22] MEDS ORDERED: ONDANSETRON INJ 2 MG/ML 2 ML VIAL IV PRN (19:50)
[2020-11-22] MEDS ORDERED: PROMETHAZINE HCL SYRUP 6.25 MG/5 ML PO PRN ×2 (20:16→20:45)
[2020-11-22] MEDS: SODIUM CHLORIDE 0.9% 1000ML 1,000 ML IV SCH (20:16)
[2020-11-22] MEDS: ATORVASTATIN 40 MG TAB PO SCH (20:47)
[2020-11-22] MEDS: DOXYCYCLINE HYCLATE 100 MG CAP PO SCH (20:47)
[2020-11-22] MEDS: HEPARIN SOD 5,000 UNIT/0.5 ML VIAL SQ SCH ×2 (20:47→20:51)
[2020-11-23] MEDS: HEPARIN SOD 5,000 UNIT/0.5 ML VIAL SQ SCH ×3 (03:38→20:07)
[2020-11-23] MEDS: SODIUM CHLORIDE 0.9% 1000ML 1,000 ML IV SCH (03:38)
[2020-11-23 07:06] LABS: Hematocrit (blood only) 39.9 % (42-52); Hemoglobin 13.3 g/dL (14.0-18.0); Mean Corpuscular Hemoglobin 30.7 pg (25-34); Mean Corpuscular Hgb Conc 33.3 g/dL (32-36); Mean Corpuscular Volume 92.1 fL (80-100); Mean Platelet Volume 10.9 fL (7.4-10.4); Platelet Count 288 K/uL (130-400); RDW Coefficient of Variation 15.4 % (11.5-14.5); RDW Standard Deviation 52.2 fL (36.4-46.3); Red Blood Count 4.33 M/uL (4.7-6.1); White Blood Count 10.72 K/uL (4.8-10.8)
[2020-11-23 07:39] LABS: Basophils # (auto) 0.01 K/uL (0-0.2); Basophils % (auto) 0.1 %; Echinocytes 1+; Eosinophils # (auto) 0.24 K/uL (0-0.5); Eosinophils % (auto) 2.2 %; Immature Granulocytes # (auto) 0.03 K/uL (0.00-0.02); Immature Granulocytes % (auto) 0.3 %; Lymphocytes # (auto) 0.57 K/uL (1.2-3.4); Lymphocytes % (auto) 5.3 %; Monocytes # (auto) 0.92 K/uL (0.11-0.59); Monocytes % (auto) 8.6 %; Neutrophils # (auto) 8.95 K/uL (1.4-6.5); Neutrophils % (auto) 83.5 %
[2020-11-23 07:50] LABS: Albumin Level 3.2 gm/dl (3.4-5.0); BUN Creatinine Ratio 41.3 (10-20); Calcium 9.2 mg/dl (8.5-10.1); Creatinine Clr Calc Pharmacy 26.9 ml/min; Est GFR (Non-African American) 24.2 ml/min; Magnesium 2.6 mg/dl (1.8-2.4); Potassium 3.4 mmol/L (3.5-5.1)
[2020-11-23 07:53] LABS: Bilirubin,Total 0.3 mg/dl (0.2-1); Globulin 3.1 gm/dl (2.5-4.0); Total Protein 6.3 gm/dl (6.4-8.2)
--- NOTE | 2020-11-23 07:59 | Hospitalist Progress Note ---
Date of Service November 23, 2020 Assessment & Plan (1) Acute renal failure: Plan: Improving with IV fluids Suspect related to ibuprofen use from recent Ballard's palsy in setting of HCTZ/ACEi use US renal CK to assess for rhabdomyolysis Consult nephrology (2) Hypernatremia: Plan: Stop NSS, start D5W @ 125 ml/hr Volume depleted (3) Metabolic acidosis: Plan: Suspect combination of hyperchloremia, although also has an anion gap - I am less clear what is causing this Does not drink alcohol Lactic acid Salicylate level Start sodium bicarbonate Consult nephrology as above (4) Abnormal CT of the chest: Plan: Follow up CT in 4-6 weeks Do not suspect pneumonia given lack of respiratory symptom but will get procalcitonin level and blood cultures for completeness (5) Failure to thrive: Plan: Do not suspect infection related given ongoing for weeks however will take blood cultures Initial lyme and anaplasmosis testing negative - stop doxycycline Suspect this is mostly driven by his uremia PT/OT evals as likely to need inpatient rehab (6) Coronary artery disease: Plan: Continue medications as per outpatient including atorvastatin, metoprolol (7) Hyperlipidemia: Plan: Atorvastatin as noted above (8) Acid reflux: Plan: Omeprazole 20 mg as an outpatient, changed to pharmacy equivalent Plan: VTE Prophylaxis - heparin 5000 units Q8H SQ Disposition - continue on med/tele given acidosis and risk of arrhythmias Admission and Anticipated Discharge Date Admission Date: November 22, 2020 Subjective Generalized malaise, muscle weakness continues, no significant improvement since admission but also not getting worse. He appears a little confuse about what is going on or why he is here. Unable to give me an accurate history of timeline of events other than he has just been getting worse over the last 3 weeks. He denies any alcohol use or overdose of medications. Recently diagnosed Ballard's palsy therefore was taking more ibuprofen. Updated his at bedside. Review of Systems Review of Systems: All systems reviewed & are unremarkable except as noted in HPI & below Physical Exam Constitutional: WD/WN, vitals as above no acute distress Eyes: PERRL, conjunctivae normal, anicteric sclerae ENMT: external ear and nose normal, oropharynx normal Mouth: + dry oral mucous membranes Respiratory: normal respiratory effort, lungs clear to auscultation Cardiovascular: RRR, no murmur, no edema Gastrointestinal (Abdomen): normal bowel sounds, soft, nontender, no hepa tosplenomegaly Musculoskeletal: no cyanosis or clubbing, extremities motor strength 5/5 Skin: no rashes, warm and dry Neurologic: moves all extremities and awake; not confused Speech / Cognition: normal speech Psychiatric: A+Ox3, euthymic affect Genitourinary: no CVA tenderness Results & Data Results & Data ([facility]) Vital Signs (Past 12 Hours) Vital Signs Temp Pulse Pulse Resp BP Pulse Ox 11/23/20 07:00 82 11/23/20 03:40 36.7 C 93 H 20 108/73 97 11/22/20 23:50 79 11/22/20 23:26 36.5 C 80 20 133/81 98 11/22/20 20:51 79 PG Care Time/CCT Total # of Minutes Spent Total Time Spent with Patient: Total time spent is greater than 50% in coordination of care (as documented) at patient's floor/unit and/or counseling patient: Coding Level of Care Code 71062 Subseq Hosp Care Lvl 3 Diagnoses Failure to thrive Coronary artery disease I25.10 Hyperlipidemia E78.5 Acid reflux K21.9 Acute renal failure N17.9 Acute renal failure type: unspecified Metabolic acidosis E87.[address] of the chest R93.89 (1) Acute renal failure Acute renal failure type: unspecified Qualified Code(s): N17.9 - Acute kidney failure, unspecified
[2020-11-23] MEDS ORDERED: DEXTROSE 5% 1,000 ML IV SCH (08:00)
[2020-11-23] MEDS: ADVANCED PROBIOTIC 1250 MG CAPSULE PO SCH (08:44)
[2020-11-23] MEDS: CEROVITE ADV FORMULA TAB PO SCH (08:44)
[2020-11-23] MEDS: METOPROLOL SUCC 25MG EXT REL TAB PO SCH (08:44)
[2020-11-23] MEDS: DOXYCYCLINE HYCLATE 100 MG CAP PO SCH (08:44)
[2020-11-23] MEDS: PANTOprazole 40 MG TAB PO SCH (08:44)
[2020-11-23] MEDS: CETIRIZINE HCL 10 MG TABLET PO PRN (08:45)
[2020-11-23] MEDS: CYANOCOBALAMIN (VITAMIN B-12) 100 MCG TABLET PO SCH (08:45)
[2020-11-23] MEDS: ASCORBIC ACID 500 MG TAB PO SCH (08:45)
[2020-11-23] MEDS: CALCIUM 600MG + VIT D 400 IU TAB PO SCH (08:45)
[2020-11-23] MEDS: POTASSIUM CHLORIDE CRTAB 20 MEQ TABCR PO SCH (08:45)
[2020-11-23] MEDS ORDERED: SODIUM BICARBONATE 650 MG TAB PO SCH ×2 (09:00→14:45)
--- NOTE | 2020-11-23 09:23 | CT Scan Report ---
CT chest diagnostic wo con CLINICAL HISTORY: pneumonia COMPARISON STUDY: No previous studies for comparison. CT DOSE: 526.03 mGy.cm TECHNIQUE: CT of the thorax was performed from the thoracic inlet to the lung bases. Images are revi ewed in the axial, sagittal, and coronal planes. IV contrast was not administered for this examinatio n. A dose lowering technique was utilized adhering to the principles of ALARA. FINDINGS: There is no axillary, supra clavicle or internal mammary lymphadenopathy seen. Mediastinal lymph node s are not enlarged. Thyroid: Visualized portion of thyroid gland shows no evidence of focal lesions. Proximal portion of esophagus is normal. Small hiatal hernia is seen. Thoracic aorta: The thoracic aorta is normal in course and caliber, noting standard 3 vessel arch clemente iva. Heart: The heart is normal in size and configuration, without pericardial effusion. Moderate coronary calcifications are seen. Lungs and pleural spaces: Tracheobronchial tree is patent. No large infiltrates or consolidative lesions are seen. There is possible focal opacity/nodule within left base which might represent atelectasis/scarring; large solid nodule measuring 19 x 15 mm in siz e (7/101) which shows surrounding groundglass attenuation and mild septal thickening. No pleural effusion is seen. Upper abdomen: Limited evaluation of upper abdominal viscera shows no evidence of acute abnormalitie s however evaluation is significantly limited due to motion artifact. Skeletal structures: Multilevel degenerative changes of the spine. No definite aggressive lesions are seen. Limited exam due to motion artifact. IMPRESSION: 1. Questionable nodular opacity/large nodule is seen within right lower lobe and this study is signi ficantly limited by motion artifact. Differential diagnosis include pneumonia however neoplastic proc ess cannot be completely ruled out. Short-term follow-up with CT of the chest without IV contrast on nonemergency basis in 4-6 weeks is recommended to document resolution. 2. Atherosclerosis. 3. Small hiatal hernia. ACT 112: Positive. There are findings on this exam that require communication between the performing entity and the patient following Patient Test Result Information Act ([place] Act 112) guidelines. The above report was generated using voice recognition software. It may contain grammatical, syntax o r spelling errors. Electronically signed by: Myranda Wilburn DO 11/23/2020 9:22 AM
--- NOTE | 2020-11-23 10:11 | Ultrasound Report ---
ULTRASOUND KIDNEYS AND BLADDER CLINICAL HISTORY: Acute renal insufficiency. COMPARISON STUDY: Renal ultrasound dated 06/06/2018. Abdominal CT dated 12/21/2013 TECHNIQUE: Real-time, grayscale, and color flow sonography of the kidneys and bladder is performed. I mages are reviewed in the transverse and longitudinal planes. FINDINGS: Kidneys: The kidneys demonstrate mild cortical atrophy. Echotexture is normal. The right kidney measu res 10.3 cm in length and the left kidney measures 11.4 cm in length. There is no hydronephrosis. No shadowing renal calculi are identified. Bilateral renal cysts measure up to 2.5 cm. There is no sonog raphic evidence of contour deforming renal mass lesion. Trace nonspecific perinephric fluid is seen b ilaterally. Bladder: The bladder is distended. The wall appears thickened and trabeculated suggesting chronic out let obstruction. Bilateral ureteral jets were seen. IMPRESSION: 1. The kidneys demonstrate mild cortical atrophy and are without hydronephrosis. 2. Trace nonspecific perinephric fluid is seen bilaterally. 3. The appearance of the bladder suggests chronic outlet obstruction. ACT 112: Negative or not required by law. Electronically signed by: Dino Lyman M.D. 11/23/2020 10:09 AM
--- NOTE | 2020-11-23 12:37 | Nephrology Consultation ---
Date of Consultation November 23, 2020 Assessment & Plan (1) Hypernatremia: Repeat metabolic profile sent to validate this findings. Christian denies thirst. He is not polyuric. IV water is being provided. He is volume depleted. Fluids will be adjusted based on current labs. (2) Metabolic acidosis: Mixed AG/NAG. Kidney function improving. Oral replacement with 1300 NaHCO3 twice daily ordered. Repeta labs pending. (3) Acute renal failure: Diuretics held. Non-oliguric. Electrolytes acceptable. 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 Improvement noted with intravascular volume expansion. Plan to continue IVF to maintain a positive fluid balance, >1 L/d goal. (4) HTN (hypertension): BP acceptable. Diuretics held. Lisinopril held. History of Present Illness Reason for Consultation: metabolic acidosis, ALESHA Requesting Physician: Carlos Alberto Fitch MD Attending Physician: Carlos Alberto Fitch MD History of Present Illness Mr. Bryant is a 75-year-old male with essential hypertension and CKD who I have followed in the outpatient nephrology clinic. I recently had a virtual visit with Christian and his during which HCTZ was stopped due to low BP. Christian has been struggling with poor appetite and weakness at home. He denies any other GI symptoms such as nausea, vomiting, diarrhea, or constipation. He feels that his is overreacting and overly concerned. He admits to being very weak and his activity tolerance is poor. 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 He notes that his activity tolerance has been poor and he has been very sedentary. He seemed slightly confused (though oriented x 3 during our conversation this AM). Otherwise his short term memory was good. BP was initially well controlled with diltiazem and HCTZ. Lisinopril added around 2004. Subsequently switched from diltiazem to amlodipine. Unfortunately, Montrell did not tolerate amlodipine well. He stopped the medication due to lower extremity edema and fatigue. Also noted some nausea associated with medication. The symptoms improved once the medication stopped. Activity tolerance is excellent. Acetazolamide started for Meinere's. HCTZ subsequently restarted to assist with BP control. BP was well controlled with HCTZ and lisinopril. Christian has had hypokalemia and mild hypophosphatemia associated with therapy. Creatinine remains slightly elevated but stable. Overall metabolic profile currently acceptable. Christian does use Ibuprofen PRN for joint pains. History of TIA in the past. History of remote double vision associated with accelerated hypertension. No recent symptoms. Monitors BP daily at home. Cardiac work up in 2008 and 2014. Stress echocardiogram in 2014 at 93% MPHR negative for ischemia. Normal LV at that time. Allergies Allergy/AdvReac Type Severity Reaction Status Date / Time amlodipine AdvReac Mild nausea Verified 11/22/20 20:10 Home Medications Medication Instructions Recorded Confirmed Type Lactobacillus 1 cap PO QAM cap 11/19/18 11/22/20 History acidophilus-Bifidobac.animalis 31 billion cell capsule cetirizine 10 mg tablet 10 mg PO DAILY PRN #90 tab 11/19/18 11/22/20 Rx cyanocobalamin (vitamin B-12) 100 100 mcg PO QAM tab 11/19/18 11/22/20 History mcg tablet ibuprofen 200 mg tablet 200 mg PO Q6H PRN tab 11/19/18 11/22/20 History multivitamin with minerals 1 tab PO QAM tab 11/19/18 11/22/20 History (Multiple Vitamin-Minerals) omeprazole 20 mg capsule,delayed 20 mg PO QAM cap 11/19/18 11/22/20 History release vitamin E (dl, acetate) 400 unit 400 units PO QAM 11/19/18 11/22/20 History capsule ascorbic acid (vitamin C) 500 mg 500 mg PO QAM 05/07/19 11/22/20 History tablet hydrocortisone 2.5 % topical cream 1 appln TOP BID PRN #30 gm 06/16/19 11/22/20 Rx ketoconazole 2 % topical cream 1 appln TOPICAL DAILY #30 gm 06/16/19 11/22/20 Rx calcium carbonate 600 mg calcium 600 mg PO QAM tab 09/04/19 11/22/20 History (1,500 mg) tablet atorvastatin 80 mg tablet 80 mg PO QPM #90 tab 02/27/20 11/22/20 Rx metoprolol succinate 25 mg 12.5 mg PO DAILY #45 tab 08/09/20 11/22/20 Rx tablet,extended release 24 hr promethazine-DM 6.25 mg-15 mg/5 mL 5 ml PO Q6H PRN #473 ml 10/06/20 11/22/20 Rx oral syrup lisinopril 40 mg tablet 40 mg PO DAILY #90 tab 10/14/20 11/22/20 Rx potassium chloride 20 mEq 20 meq PO DAILY #90 tab 11/03/20 11/22/20 Rx tablet,extended release(part/cryst) hydrochlorothiazide 25 mg tablet 12.5 mg PO QAM tab 11/04/20 11/22/20 History acetazolamide 250 mg tablet 250 mg PO DAILY 11/22/20 11/22/20 History Patient History Medical History Family history of coronary artery disease GERD (gastroesophageal reflux disease) GI (gastrointestinal bleed) (12/20/13) Hearing deficit LEFT JORGENSEN History of TIA (transient ischemic attack) 3O YEARS AGO HTN (hypertension) Hyperlipidemia Lower GI bleed Meniere's disease Osteoarthritis Surgical History History of arthroscopy of both knees History of arthroscopy of shoulder History of colonoscopy History of hernia repair X 2 History of knee replacement BL History of total knee arthroplasty Status post laparoscopic hernia repair Family History Mother Stroke Diabetes Father FHx: deafness or hearing loss Hypertension Scarlet fever Heart disease Myocardial infarction Other Coronary heart disease Family history of coronary artery disease Denies family history of Ovarian cancer Prostate cancer Breast cancer Bleeding disorder Colorectal cancer History of malignant hyperthermia Social History Smoking Status: Never smoker Second Hand Exposure: Yes ( A CHILD); Hx Alcohol Use: No Hx Substance Use: No Preferred Language: Kazakh Communication Ability: Effective Reinforcement Maker Required: No Beliefs That Will Affect Care: None marital status: Current Living Situation: Spouse current occupational status: retired Other Information That Helps Us Care for You: No Feels Safe at Home: Yes caffeine: Yes Dental Care, Regularly: No Physical Activity Frequency: 3-4 Times per Week Seatbelt Use: always Sunscreen Use: No Assistive Devices: None, Glasses and Hearing Aid - Left Review of Systems Constitutional: + fatigue and + anorexia; no weight loss and no problem reported Eyes: no problem reported Ear, Nose, Mouth, Throat: no problem reported Respiratory: no problem reported Cardiovascular: no problem reported Gastrointestinal: no problem reported Musculoskeletal: no problem reported Integumentary: no problem reported Neurologic: no problem reported Psychiatric: no problem reported Endocrine: no problem reported Hematologic / Lymphatic: no problem reported Physical Exam Constitutional: well developed; no acute distress Eyes: no scleral abnormality and no corneal abnormality ENMT: Mouth: + dry oral mucous membranes; no oral mucosal abnormality Neck: normal visual inspection and trachea midline Respiratory: normal respiratory effort Auscultation: lungs clear to auscultation bilaterally Cardiovascular: Rate/Rhythm: regular rate Heart Sounds: normal S1 and normal S2 Extremities: no edema Musculoskeletal: Extremities: no cyanosis and no clubbing Skin: + turgor decreased; no lesions Neurologic: Motor/Sensory: no tremor and no asterixis Psychiatric: Orientation: alert and oriented x 3 Results & Data ([facility]) Vital Signs (Past 12 Hours) Vital Signs Temp Pulse Pulse Resp BP Pulse Ox 11/23/20 11:25 36.5 C 80 16 112/76 96 11/23/20 08:43 36.5 C 91 H 20 117/74 96 11/23/20 07:00 82 11/23/20 03:40 36.7 C 93 H 20 108/73 97 Laboratory Results Laboratory Results - last 24 hr 11/22/20 11/22/20 11/22/20 13:18 13:18 13:28 WBC 12.44 H RBC 4.80 Hgb 15.1 Hct 44.6 MCV 92.9 MCH 31.5 MCHC 33.9 RDW Std Deviation 51.9 H RDW Coeff of Zulma 15.3 H Plt Count 327 MPV 11.3 H Immature Gran % (Auto) 0.3 Neut % (Auto) 80.0 Lymph % (Auto) 6.9 Braxton % (Auto) 10.3 Eos % (Auto) 2.2 Baso % (Auto) 0.3 Neut # (Auto) 9.95 H Lymph # (Auto) 0.86 L Braxton # (Auto) 1.28 H Eos # (Auto) 0.27 Baso # (Auto) 0.04 Immature Gran # (Auto) 0.04 H Echinocytes VBG pH Sodium Cancelled Potassium Cancelled Chloride Cancelled Carbon Dioxide Cancelled Anion Gap Cancelled BUN Cancelled Creatinine Cancelled Est Cr Clr Drug Dosing Cancelled Est GFR ( Amer) Cancelled Est GFR (Non-Af Amer) Cancelled BUN/Creatinine Ratio Cancelled Glucose Cancelled Lactate Calcium Cancelled Magnesium Total Bilirubin Cancelled AST Cancelled ALT Cancelled Alkaline Phosphatase Cancelled Troponin I Cancelled Total Protein Cancelled Albumin Cancelled Globulin Cancelled Albumin/Globulin Ratio Cancelled TSH Cancelled Urine Color Urine Appearance Urine pH Ur Specific [place] Urine Protein Urine Glucose (UA) Urine Ketones Urine Blood Urine Nitrite Urine Bilirubin Urine Urobilinogen Ur Leukocyte Esterase Urine WBC (Auto) Urine RBC (Auto) U Hyaline Cast (Auto) U Epithel Cells (Auto) Urine Bacteria (Auto) Ur Renal Epithelial Cell WBC Casts Salicylates Anaplasma Smear See Comment A. phagocytophilum DNA Lyme Disease IgG Ab Lyme Disease IgM Ab COVID-19 Eval Order SARS-CoV-2 (PCR) 11/22/20 11/22/20 11/22/20 13:28 14:15 14:15 WBC RBC Hgb Hct MCV MCH MCHC RDW Std Deviation RDW Coeff of Zulma Plt Count MPV Immature Gran % (Auto) Neut % (Auto) Lymph % (Auto) Braxton % (Auto) Eos % (Auto) Baso % (Auto) Neut # (Auto) Lymph # (Auto) Braxton # (Auto) Eos # (Auto) Baso # (Auto) Immature Gran # (Auto) Echinocytes VBG pH Sodium 145 Potassium 3.3 L Chloride 120 H Carbon Dioxide 11 L Anion Gap 15.0 H BUN 133 H Creatinine 3.67 H Est Cr Clr Drug Dosing 18.5 Est GFR ( Amer) 17.9 Est GFR (Non-Af Amer) 15.4 BUN/Creatinine Ratio 36.3 H Glucose 103 H Lactate Calcium 8.8 Magnesium Total Bilirubin 0.3 AST 7 L ALT 32 Alkaline Phosphatase 83 Troponin I < 0.015 Total Protein 6.8 Albumin 3.6 Globulin 3.2 Albumin/Globulin Ratio 1.1 TSH 0.495 Urine Color Urine Appearance Urine pH Ur Specific [place] Urine Protein Urine Glucose (UA) Urine Ketones Urine Blood Urine Nitrite Urine Bilirubin Urine Urobilinogen Ur Leukocyte Esterase Urine WBC (Auto) Urine RBC (Auto) U Hyaline Cast (Auto) U Epithel Cells (Auto) Urine Bacteria (Auto) Ur Renal Epithelial Cell WBC Casts Salicylates Anaplasma Smear A. phagocytophilum DNA Pending Lyme Disease IgG Ab Negative Lyme Disease IgM Ab Negative COVID-19 Eval Order SARS-CoV-2 (PCR) 11/22/20 11/22/20 11/22/20 14:30 15:37 15:37 WBC RBC Hgb Hct MCV MCH MCHC RDW Std Deviation RDW Coeff of Zulma Plt Count MPV Immature Gran % (Auto) Neut % (Auto) Lymph % (Auto) Braxton % (Auto) Eos % (Auto) Baso % (Auto) Neut # (Auto) Lymph # (Auto) Braxton # (Auto) Eos # (Auto) Baso # (Auto) Immature Gran # (Auto) Echinocytes VBG pH Sodium Potassium Chloride Carbon Dioxide Anion Gap BUN Creatinine Est Cr Clr Drug Dosing Est GFR ( Amer) Est GFR (Non-Af Amer) BUN/Creatinine Ratio Glucose Lactate Calcium Magnesium Total Bilirubin AST ALT Alkaline Phosphatase Troponin I Total Protein Albumin Globulin Albumin/Globulin Ratio TSH Urine Color Yellow Urine Appearance Clear Urine pH 5.5 Ur Specific [place] 1.016 Urine Protein 1+ H Urine Glucose (UA) Negative Urine Ketones Trace H Urine Blood Negative Urine Nitrite Negative Urine Bilirubin Negative Urine Urobilinogen Negative Ur Leukocyte Esterase Negative Urine WBC (Auto) 1-5 Urine RBC (Auto) 0-4 U Hyaline Cast (Auto) 5-10 H U Epithel Cells (Auto) >30 H Urine Bacteria (Auto) Negative Ur Renal Epithelial Cell Not Reportable WBC Casts 5-10 H Salicylates Anaplasma Smear A. phagocytophilum DNA Lyme Disease IgG Ab Lyme Disease IgM Ab COVID-19 Eval Order Covid19 at [facility] SARS-CoV-2 (PCR) NEGATIVE 11/23/20 11/23/20 11/23/20 06:24 06:24 08:41 WBC 10.72 RBC 4.33 L Hgb 13.3 L Hct 39.9 L MCV 92.1 MCH 30.7 MCHC 33.3 RDW Std Deviation 52.2 H RDW Coeff of Zulma 15.4 H Plt Count 288 MPV 10.9 H Immature Gran % (Auto) 0.3 Neut % (Auto) 83.5 Lymph % (Auto) 5.3 Braxton % (Auto) 8.6 Eos % (Auto) 2.2 Baso % (Auto) 0.1 Neut # (Auto) 8.95 H Lymph # (Auto) 0.57 L Braxton # (Auto) 0.92 H Eos # (Auto) 0.24 Baso # (Auto) 0.01 Immature Gran # (Auto) 0.03 H Echinocytes 1+ VBG pH 7.23 L Sodium 150 H Potassium 3.4 L Chloride 125 H Carbon Dioxide 11 L Anion Gap 13.0 H BUN 104 H Creatinine 2.53 H D Est Cr Clr Drug Dosing 26.9 Est GFR ( Amer) 28.0 Est GFR (Non-Af Amer) 24.2 BUN/Creatinine Ratio 41.3 H Glucose 91 Lactate Calcium 9.2 Magnesium 2.6 H Total Bilirubin 0.3 AST 12 L ALT 31 Alkaline Phosphatase 81 Troponin I Total Protein 6.3 L Albumin 3.2 L Globulin 3.1 Albumin/Globulin Ratio 1.0 TSH Urine Color Urine Appearance Urine pH Ur Specific [place] Urine Protein Urine Glucose (UA) Urine Ketones Urine Blood Urine Nitrite Urine Bilirubin Urine Urobilinogen Ur Leukocyte Esterase Urine WBC (Auto) Urine RBC (Auto) U Hyaline Cast (Auto) U Epithel Cells (Auto) Urine Bacteria (Auto) Ur Renal Epithelial Cell WBC Casts Salicylates Anaplasma Smear A. phagocytophilum DNA Lyme Disease IgG Ab Lyme Disease IgM Ab COVID-19 Eval Order SARS-CoV-2 (PCR) 11/23/20 11/23/20 08:41 08:41 WBC RBC Hgb Hct MCV MCH MCHC RDW Std Deviation RDW Coeff of Zulma Plt Count MPV Immature Gran % (Auto) Neut % (Auto) Lymph % (Auto) Braxton % (Auto) Eos % (Auto) Baso % (Auto) Neut # (Auto) Lymph # (Auto) Braxton # (Auto) Eos # (Auto) Baso # (Auto) Immature Gran # (Auto) Echinocytes VBG pH Sodium Potassium Chloride Carbon Dioxide Anion Gap BUN Creatinine Est Cr Clr Drug Dosing Est GFR ( Amer) Est GFR (Non-Af Amer) BUN/Creatinine Ratio Glucose Lactate 0.8 Calcium Magnesium Total Bilirubin AST ALT Alkaline Phosphatase Troponin I Total Protein Albumin Globulin Albumin/Globulin Ratio TSH Urine Color Urine Appearance Urine pH Ur Specific [place] Urine Protein Urine Glucose (UA) Urine Ketones Urine Blood Urine Nitrite Urine Bilirubin Urine Urobilinogen Ur Leukocyte Esterase Urine WBC (Auto) Urine RBC (Auto) U Hyaline Cast (Auto) U Epithel Cells (Auto) Urine Bacteria (Auto) Ur Renal Epithelial Cell WBC Casts Salicylates < 1.7 L Anaplasma Smear A. phagocytophilum DNA Lyme Disease IgG Ab Lyme Disease IgM Ab COVID-19 Eval Order SARS-CoV-2 (PCR) PG Care Time/CCT Total # of Minutes Spent Total Time Spent with Patient: Total time spent is greater than 50% in coordination of care (as documented) at patient's floor/unit and/or counseling patient: Coding Level of Care Code 86695 Inpt Consult Level 4 Diagnoses Hypernatremia E87.0 Metabolic acidosis E87.2 Acute renal failure N17.9 Acute renal failure type: unspecified HTN (hypertension) I10 (1) Acute renal failure Acute renal failure type: unspecified Qualified Code(s): N17.9 - Acute kidney failure, unspecified
[2020-11-23 14:03] LABS: Albumin Level 3.5 gm/dl (3.4-5.0); BUN Creatinine Ratio 42.2 (10-20); Calcium 9.5 mg/dl (8.5-10.1); Est GFR (African American) 30.8 ml/min; Est GFR (Non-African American) 26.6 ml/min; Magnesium 2.7 mg/dl (1.8-2.4); Phosphorus 4.4 mg/dl (2.5-4.9); Potassium 3.2 mmol/L (3.5-5.1)
[2020-11-23 14:05] LABS: Albumin Globulin Ratio 1.1 (0.9-2); Bilirubin,Total 0.5 mg/dl (0.2-1); Globulin 3.2 gm/dl (2.5-4.0); Total Protein 6.7 gm/dl (6.4-8.2)
[2020-11-23] MEDS ORDERED: POTASSIUM CHLORIDE CRTAB 20 MEQ TABCR PO STA (14:40)
[2020-11-23] MEDS: SODIUM CHLORIDE 0.45 % 1,000 ML IV SCH ×2 (15:02→20:08)
[2020-11-23] MEDS: SODIUM BICARBONATE 650 MG TAB PO SCH ×2 (15:13→20:07)
[2020-11-23] MEDS: ATORVASTATIN 40 MG TAB PO SCH (20:07)
[2020-11-24] MEDS: SODIUM CHLORIDE 0.45 % 1,000 ML IV SCH ×2 (02:14→09:21)
[2020-11-24] MEDS: HEPARIN SOD 5,000 UNIT/0.5 ML VIAL SQ SCH ×3 (04:59→19:53)
[2020-11-24 08:11] LABS: Hematocrit (blood only) 35.2 % (42-52); Hemoglobin 12.1 g/dL (14.0-18.0); Mean Corpuscular Hemoglobin 30.8 pg (25-34); Mean Corpuscular Hgb Conc 34.4 g/dL (32-36); Mean Corpuscular Volume 89.6 fL (80-100); Mean Platelet Volume 10.3 fL (7.4-10.4); Platelet Count 250 K/uL (130-400); RDW Coefficient of Variation 15.1 % (11.5-14.5); Red Blood Count 3.93 M/uL (4.7-6.1); White Blood Count 8.69 K/uL (4.8-10.8)
[2020-11-24 08:37] LABS: Basophils # (auto) 0.02 K/uL (0-0.2); Basophils % (auto) 0.2 %; Echinocytes 1+; Eosinophils # (auto) 0.25 K/uL (0-0.5); Eosinophils % (auto) 2.9 %; Immature Granulocytes # (auto) 0.01 K/uL (0.00-0.02); Immature Granulocytes % (auto) 0.1 %; Lymphocytes # (auto) 0.77 K/uL (1.2-3.4); Lymphocytes % (auto) 8.9 %; Monocytes # (auto) 0.68 K/uL (0.11-0.59); Monocytes % (auto) 7.8 %; Neutrophils # (auto) 6.96 K/uL (1.4-6.5); Neutrophils % (auto) 80.1 %
[2020-11-24 08:48] LABS: BUN Creatinine Ratio 39.4 (10-20); Calcium 8.2 mg/dl (8.5-10.1); Creatinine Clr Calc Pharmacy 34.7 ml/min; Est GFR (African American) 38.2 ml/min; Potassium 3.3 mmol/L (3.5-5.1)
[2020-11-24] MEDS: METOPROLOL SUCC 25MG EXT REL TAB PO SCH (09:22)
[2020-11-24] MEDS: SODIUM BICARBONATE 650 MG TAB PO SCH ×3 (09:22→19:53)
[2020-11-24] MEDS: CYANOCOBALAMIN (VITAMIN B-12) 100 MCG TABLET PO SCH (09:23)
[2020-11-24] MEDS: POTASSIUM CHLORIDE CRTAB 20 MEQ TABCR PO SCH (09:23)
[2020-11-24] MEDS: CALCIUM 600MG + VIT D 400 IU TAB PO SCH (09:23)
[2020-11-24] MEDS: ADVANCED PROBIOTIC 1250 MG CAPSULE PO SCH (09:23)
[2020-11-24] MEDS: PANTOprazole 40 MG TAB PO SCH (09:24)
[2020-11-24] MEDS: ASCORBIC ACID 500 MG TAB PO SCH (09:24)
[2020-11-24] MEDS: CEROVITE ADV FORMULA TAB PO SCH (09:24)
[2020-11-24] MEDS ORDERED: DEXTROSE 5% 1,000 ML IV SCH (10:15)
[2020-11-24] MEDS ORDERED: POTASSIUM CHLORIDE CRTAB 20 MEQ TABCR PO STA ×2 (10:19→17:48)
--- NOTE | 2020-11-24 10:26 | Nephrology Progress Note ---
Date of Service November 24, 2020 Assessment & Plan (1) Hypernatremia: Plan: Christian denies thirst. He is not polyuric. IV water is being provided. 1 L of D5W to infuse now. Volume status improved. Repeat labs this afternoon. (2) Metabolic acidosis: Plan: NAG. Kidney function improving. Oral replacement with 1300 NaHCO3 TID ordered. Repeat labs this afternoon. (3) Acute renal failure: Plan: Diuretics held. NSAIDs complicating; now held. Non-oliguric. Electrolytes acceptable. Potassium replacement ordered for hypokalemia. 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 Improvement noted with intravascular volume expansion. Plan to continue IVF to maintain a positive fluid balance. (4) HTN (hypertension): Plan: BP acceptable. Diuretics held. Lisinopril held. Admission and Anticipated Discharge Date Admission Date: November 22, 2020 Subjective No acute events overnight. Christian feels well this AM. He states that his strength has improved but he remains admittedly weak. Appetite remains very poor. He denies nausea or abdominal pain. He states that he feels like he should be at home and does not know why he is in the hospital. I've attempted to call his (Kandi) several times without answer. I did leave a message with a call back number as well. Christian continues to deny thirst. Review of Systems Review of Systems: All systems reviewed & are unremarkable except as noted in HPI & below Physical Exam Constitutional: well developed; no acute distress Eyes: no scleral abnormality and no corneal abnormality ENMT: Mouth: no oral mucosal abnormality and oral mucous membranes not dry Neck: normal visual inspection and trachea midline Respiratory: normal respiratory effort Auscultation: lungs clear to auscultation bilaterally Cardiovascular: Rate/Rhythm: regular rate Heart Sounds: normal S1 and normal S2 Extremities: no edema Musculoskeletal: Extremities: no cyanosis and no clubbing Skin: + turgor decreased; no lesions Neurologic: Motor/Sensory: no tremor and no asterixis Psychiatric: Orientation: alert and oriented x 3 Results & Data ([facility]) Vital Signs (Past 12 Hours) Vital Signs Temp Pulse Pulse Resp BP Pulse Ox 11/24/20 08:52 36.5 C 63 20 114/77 90 11/24/20 07:52 36.8 C 74 20 122/77 100 11/24/20 07:06 62 11/24/20 04:39 36.6 C 71 18 116/74 98 11/24/20 02:32 80 11/23/20 23:40 36.7 C 73 20 132/82 97 Laboratory Results Laboratory Results - last 24 hr 11/23/20 11/23/20 11/23/20 13:29 17:22 17:22 WBC RBC Hgb Hct MCV MCH MCHC RDW Std Deviation RDW Coeff of Zulma Plt Count MPV Immature Gran % (Auto) Neut % (Auto) Lymph % (Auto) Branch % (Auto) Eos % (Auto) Baso % (Auto) Neut # (Auto) Lymph # (Auto) Branch # (Auto) Eos # (Auto) Baso # (Auto) Immature Gran # (Auto) Echinocytes Sodium 147 H Potassium 3.2 L Chloride 123 H Carbon Dioxide 14 L Anion Gap 10.0 BUN 99 H Creatinine 2.34 H Est Cr Clr Drug Dosing 29.0 Est GFR ( Amer) 30.8 Est GFR (Non-Af Amer) 26.6 BUN/Creatinine Ratio 42.2 H Glucose 173 H Calcium 9.5 Phosphorus 4.4 Magnesium 2.7 H Total Bilirubin 0.5 AST 14 L ALT 35 Alkaline Phosphatase 83 Total Creatine Kinase 45 Total Protein 6.7 Albumin 3.5 Globulin 3.2 Albumin/Globulin Ratio 1.1 Procalcitonin 0.15 11/24/20 11/24/20 07:57 07:57 WBC 8.69 RBC 3.93 L Hgb 12.1 L Hct 35.2 L MCV 89.6 MCH 30.8 MCHC 34.4 RDW Std Deviation 50.0 H RDW Coeff of Zulma 15.1 H Plt Count 250 MPV 10.3 Immature Gran % (Auto) 0.1 Neut % (Auto) 80.1 Lymph % (Auto) 8.9 Branch % (Auto) 7.8 Eos % (Auto) 2.9 Baso % (Auto) 0.2 Neut # (Auto) 6.96 H Lymph # (Auto) 0.77 L Branch # (Auto) 0.68 H Eos # (Auto) 0.25 Baso # (Auto) 0.02 Immature Gran # (Auto) 0.01 Echinocytes 1+ Sodium 147 H Potassium 3.3 L Chloride 124 H Carbon Dioxide 14 L Anion Gap 9.0 BUN 77 H Creatinine 1.96 H D Est Cr Clr Drug Dosing 34.7 Est GFR ( Amer) 38.2 Est GFR (Non-Af Amer) 33.0 BUN/Creatinine Ratio 39.4 H Glucose 106 H Calcium 8.2 L Phosphorus Magnesium Total Bilirubin AST ALT Alkaline Phosphatase Total Creatine Kinase Total Protein Albumin Globulin Albumin/Globulin Ratio Procalcitonin PG Care Time/CCT Total # of Minutes Spent Total Time Spent with Patient: Total time spent is greater than 50% in coordination of care (as documented) at patient's floor/unit and/or counseling patient: Coding Level of Care Code 42471 Subseq Hosp Care Lvl 3 Diagnoses Hypernatremia E87.0 Metabolic acidosis E87.2 Acute renal failure N17.9 Acute renal failure type: unspecified HTN (hypertension) I10 (1) Acute renal failure Acute renal failure type: unspecified Qualified Code(s): N17.9 - Acute kidney failure, unspecified
--- NOTE | 2020-11-24 11:36 | Hospitalist Progress Note ---
Date of Service November 24, 2020 Assessment & Plan (1) Acute renal failure: Plan: Improving with IV fluids - appreacite nephrology management of this Suspect related to ibuprofen use from recent Ballard's palsy in setting of HCTZ/ACEi use US renal - no obstructive uropathy CK negative TTE - ordered to assess for uremic pericardial effusion given shortness of breath Appreciate pharmacy consult (2) Hypernatremia: Plan: Volume depleted Resolved now with D5W, switched to normosol per nephrology recommendations. (3) Metabolic acidosis: Plan: Suspect combination of hyperchloremia, although also has an anion gap, now resolved Does not drink alcohol Lactic acid - negative Salicylate level - negative Continue sodium bicarbonate - dose per nephrology recommendations Appreciate nephrology recommendations (4) Abnormal CT of the chest: Plan: Follow up CT in 4-6 weeks Do not suspect pneumonia, procalcitonin negative. (5) Failure to thrive: Plan: Blood cultures negative to date Initial lyme and anaplasmosis testing negative - stop doxycycline Suspect this is mostly driven by his uremia PT/OT continued evals and treatment as his strength improves. (6) Coronary artery disease: Plan: Continue medications as per outpatient including atorvastatin, metoprolol (7) Hyperlipidemia: Plan: Atorvastatin as noted above (8) Acid reflux: Plan: Omeprazole 20 mg as an outpatient, changed to pharmacy equivalent Plan: VTE Prophylaxis - heparin 5000 units Q8H SQ Disposition - continue on med/tele given acidosis and risk of arrhythmias Admission and Anticipated Discharge Date Admission Date: November 22, 2020 Subjective Reports feeling increased energy and less weak today. No pains. He does note shortness of breath on exertion with this. Copious urine on current IV fluids. No dysuria, CVA tenderness. No fever or chills. Review of Systems Review of Systems: All systems reviewed & are unremarkable except as noted in HPI & below Physical Exam Constitutional: WD/WN, vitals as above no acute distress ENMT: Mouth: + dry oral mucous membranes Respiratory: normal respiratory effort, lungs clear to auscultation Cardiovascular: RRR, no murmur, no edema Gastrointestinal (Abdomen): normal bowel sounds, soft, nontender, no hepatosplenomegaly Musculoskeletal: no cyanosis or clubbing, extremities motor strength 5/5 Skin: no rashes, warm and dry Neurologic: moves all extremities and awake; not confused Speech / Cognition: normal speech Psychiatric: A+Ox3, euthymic affect Results & Data Results & Data ([facility]) Vital Signs (Past 12 Hours) Vital Signs Temp Pulse Pulse Resp BP Pulse Ox 11/24/20 08:52 36.5 C 63 20 114/77 90 11/24/20 07:52 36.8 C 74 20 122/77 100 11/24/20 07:06 62 11/24/20 04:39 36.6 C 71 18 116/74 98 11/24/20 02:32 80 11/23/20 23:40 36.7 C 73 20 132/82 97 PG Care Time/CCT Total # of Minutes Spent Total Time Spent with Patient: Total time spent is greater than 50% in coordination of care (as documented) at patient's floor/unit and/or counseling patient: Coding Level of Care Code 95792 Subseq Hosp Care Lvl 3 Diagnoses Acute renal failure N17.9 Acute renal failure type: unspecified Hypernatremia E87.0 Metabolic acidosis E87.[address] of the chest R93.89 Failure to thrive Coronary artery disease I25.10 Hyperlipidemia E78.5 Acid reflux K21.9 (1) Acute renal failure Acute renal failure type: unspecified Qualified Code(s): N17.9 - Acute kidney failure, unspecified
[2020-11-24 17:37] LABS: BUN Creatinine Ratio 34.6 (10-20); Calcium 8.9 mg/dl (8.5-10.1); Creatinine Clr Calc Pharmacy 37.5 ml/min; Est GFR (Non-African American) 36.3 ml/min; Potassium 3.1 mmol/L (3.5-5.1)
[2020-11-24] MEDS ORDERED: NORMOSOL-R 1,000 ML IV ONE (17:49)
[2020-11-24] MEDS: ATORVASTATIN 40 MG TAB PO SCH (19:53)
--- NOTE | 2020-11-24 21:04 | XCELERA ---
[id number]
--- NOTE | 2020-11-25 05:35 | Electrocardiogram Report ---
Test Reason : Blood Pressure : / mmHG Vent. Rate : 063 BPM Atrial Rate : 063 BPM P-R Int : 152 ms QRS Dur : 148 ms QT Int : 424 ms P-R-T Axes : 048 000 002 degrees QTc Int : 433 ms Normal sinus rhythm Right bundle branch block Abnormal ECG When compared with ECG of 09-MAY-2019 10:58, Premature ventricular complexes are no longer Present Confirmed by Federico Miller ([id number] on 11/25/2020 5:35:09 AM Referred By: Katie Coelho Confirmed By:Federico Miller
[2020-11-25] MEDS: HEPARIN SOD 5,000 UNIT/0.5 ML VIAL SQ SCH ×3 (06:07→21:59)
[2020-11-25 07:42] LABS: Est GFR (African American) 49.2 ml/min; Est GFR (Non-African American) 42.4 ml/min; Potassium 3.5 mmol/L (3.5-5.1)
[2020-11-25 07:43] LABS: BUN Creatinine Ratio 29.3 (10-20); Calcium 8.8 mg/dl (8.5-10.1); Creatinine Clr Calc Pharmacy 42.7 ml/min
[2020-11-25] MEDS: POTASSIUM CHLORIDE CRTAB 20 MEQ TABCR PO SCH (08:32)
[2020-11-25] MEDS: PANTOprazole 40 MG TAB PO SCH (08:33)
[2020-11-25] MEDS: SODIUM BICARBONATE 650 MG TAB PO SCH ×3 (08:33→20:20)
[2020-11-25] MEDS: CEROVITE ADV FORMULA TAB PO SCH (08:33)
[2020-11-25] MEDS: METOPROLOL SUCC 25MG EXT REL TAB PO SCH (08:34)
[2020-11-25] MEDS: CYANOCOBALAMIN (VITAMIN B-12) 100 MCG TABLET PO SCH (08:35)
[2020-11-25] MEDS: CALCIUM 600MG + VIT D 400 IU TAB PO SCH (08:35)
[2020-11-25] MEDS: ASCORBIC ACID 500 MG TAB PO SCH (08:35)
[2020-11-25] MEDS: ADVANCED PROBIOTIC 1250 MG CAPSULE PO SCH (08:35)
--- NOTE | 2020-11-25 10:11 | Nephrology Progress Note ---
Date of Service November 25, 2020 Assessment & Plan (1) Hypernatremia: Plan: Improved with IV free water replacement. Volume status acceptable. UOP not fully documented. Fluids readily available at bedside. I encouraged Christian to drink liberally today and will repeat a metabolic profile this afternoon. (2) Metabolic acidosis: Plan: NAG. Kidney function improving. Oral replacement with 1300 NaHCO3 TID ordered. Repeat labs this afternoon. (3) Acute renal failure: Plan: Diuretics held. NSAIDs complicating; now held. Non-oliguric. Electrolytes acceptable. Remains on a daily KCl supplement. Improvement noted with intravascular volume expansion. IVF held. Will monitor. (4) HTN (hypertension): Plan: BP acceptable. Diuretics held. Lisinopril held. Admission and Anticipated Discharge Date Admission Date: November 22, 2020 Subjective No acute events overnight. Appetite remains poor but was able to eat ~60% breakfast. I had a long conversation with Christian's (Kandi) yesterday. Christian has been eating and drinking very little at home since diagnosed with Ballard's palsy. He reports not taste to foot. He does not feel hungry or thirsty. He denies any depression. No concerns regarding memory or mental status from Christian or his . However, Christian notes that he has had some issues recalling names. He denies any other GI symptoms. He was out of bed to bathroom this morning and told me that he feels that his strength has improved and he hopes to be discharged home soon. Review of Systems Review of Systems: All systems reviewed & are unremarkable except as noted in HPI & below Physical Exam Constitutional: well developed; no acute distress Eyes: no scleral abnormality and no corneal abnormality ENMT: Mouth: no oral mucosal abnormality and oral mucous membranes not dry Neck: normal visual inspection and trachea midline Respiratory: normal respiratory effort Auscultation: lungs clear to auscultation bilaterally Cardiovascular: Rate/Rhythm: regular rate Heart Sounds: normal S1 and normal S2 Extremities: no edema Musculoskeletal: Extremities: no cyanosis and no clubbing Skin: + turgor decreased; no lesions Neurologic: Motor/Sensory: no tremor and no asterixis Psychiatric: Orientation: alert and oriented x 3 Results & Data ([facility]) Vital Signs (Past 12 Hours) Vital Signs Temp Pulse Pulse Resp BP Pulse Ox 11/25/20 07:39 36.7 C 78 16 131/74 93 08/05/21 03:08 36.8 C 78 20 132/76 94 11/25/20 00:30 78 11/24/20 23:39 36.9 C 88 20 151/89 H 94 Laboratory Results Laboratory Results - last 24 hr 11/24/20 11/25/20 17:13 06:04 Sodium 143 145 Potassium 3.1 L 3.5 Chloride 120 H 121 H Carbon Dioxide 16 L 17 L Anion Gap 7.0 7.0 BUN 63 H 47 H Creatinine 1.81 H 1.59 H Est Cr Clr Drug Dosing 37.5 42.7 Est GFR ( Amer) 42.0 49.2 Est GFR (Non-Af Amer) 36.3 42.4 BUN/Creatinine Ratio 34.6 H 29.3 H Glucose 106 H 92 Calcium 8.9 8.8 PG Care Time/CCT Total # of Minutes Spent Total Time Spent with Patient: Total time spent is greater than 50% in coordination of care (as documented) at patient's floor/unit and/or counseling patient: Coding Level of Care Code 88840 Subseq Hosp Care Lvl 3 Diagnoses Hypernatremia E87.0 Metabolic acidosis E87.2 Acute renal failure N17.9 Acute renal failure type: unspecified HTN (hypertension) I10 (1) Acute renal failure Acute renal failure type: unspecified Qualified Code(s): N17.9 - Acute kidney failure, unspecified
--- NOTE | 2020-11-25 13:39 | Hospitalist Progress Note ---
Date of Service November 25, 2020 Assessment & Plan (1) Acute renal failure: Plan: Improving with IV fluids - appreciate nephrology management of this Suspect related to ibuprofen use from recent Ballard's palsy in setting of HCTZ/ACEi and poor oral intake US renal - no obstructive uropathy CK negative TTE - no pericardial effusion (2) Hypernatremia: Plan: Volume depleted on admission Resolved. (3) Metabolic acidosis: Plan: Hyperchloremia, although also has an anion gap, now resolved. Does not drink alcohol. Lactic acid - negative. Salicylate level - negative. Continue sodium bicarbonate - dose per nephrology recommendations. Appreciate nephrology recommendations. (4) Abnormal CT of the chest: Plan: Follow up CT in 4-6 weeks. Do not suspect pneumonia, procalcitonin negative. (5) Failure to thrive: Plan: Blood cultures negative to date. Initial lyme and anaplasmosis testing negative - stop doxycycline. Suspect this is mostly driven by his uremia. PT/OT continued evals and treatment as his strength improves. (6) Coronary artery disease: Plan: Continue medications as per outpatient including atorvastatin, metoprolol (7) Hyperlipidemia: Plan: Atorvastatin as noted above (8) Acid reflux: Plan: Omeprazole 20 mg as an outpatient, changed to pharmacy equivalent Plan: VTE Prophylaxis - heparin 5000 units Q8H SQ Disposition - transfer to medical Admission and Anticipated Discharge Date Admission Date: November 22, 2020 Subjective Appears much more alert and less confused. Cleared to go home by physical and occupational therapy. Weakness slowly improving. No chest pain, shortness of b reath at rest. Pain under control without ibuprofen. Review of Systems Review of Systems: All systems reviewed & are unremarkable except as noted in HPI & below Physical Exam Constitutional: WD/WN, vitals as above no acute distress Respiratory: normal respiratory effort, lungs clear to auscultation Cardiovascular: RRR, no murmur, no edema Neurologic: moves all extremities and awake; not confused Speech / Cognition: normal speech Psychiatric: A+Ox3, euthymic affect Genitourinary: no CVA tenderness Results & Data Results & Data ([facility]) Vital Signs (Past 12 Hours) Vital Signs Temp Pulse Pulse Resp BP Pulse Ox 11/25/20 12:09 36.8 C 74 16 131/84 95 11/25/20 09:00 80 11/25/20 07:39 36.7 C 78 16 131/74 93 11/25/20 03:08 36.8 C 78 20 132/76 94 PG Care Time/CCT Total # of Minutes Spent Total Time Spent with Patient: Total time spent is greater than 50% in coordination of care (as documented) at patient's floor/unit and/or counseling patient: Coding Level of Care Code 62520 Subseq Hosp Care Lvl 2 Diagnoses Acute renal failure N17.9 Acute renal failure type: unspecified Hypernatremia E87.0 Metabolic acidosis E87.[address] of the chest R93.89 Failure to thrive Coronary artery disease I25.10 Hyperlipidemia E78.5 Acid reflux K21.9 (1) Acute renal failure Acute renal failure type: unspecified Qualified Code(s): N17.9 - Acute kidney failure, unspecified
[2020-11-25 16:50] LABS: BUN Creatinine Ratio 24.7 (10-20); Creatinine Clr Calc Pharmacy 41.9 ml/min; Est GFR (African American) 48.1 ml/min; Est GFR (Non-African American) 41.5 ml/min; Potassium 3.1 mmol/L (3.5-5.1)
[2020-11-25 16:55] LABS: Phosphorus 1.9 mg/dl (2.5-4.9)
[2020-11-25] MEDS ORDERED: POTASSIUM PHOS 3 MMOL/1 ML INFUSION IV STA (17:29)
[2020-11-25] MEDS ORDERED: POTASSIUM CHLORIDE CRTAB 20 MEQ TABCR PO STA (17:30)
[2020-11-25] MEDS ORDERED: POTASSIUM PHOSPHATE 30 MMOL in SODIUM CHLORIDE 0.9% 500 ML IV ONE (17:45)
[2020-11-25] MEDS: ATORVASTATIN 40 MG TAB PO SCH (20:19)
[2020-11-26] MEDS: HEPARIN SOD 5,000 UNIT/0.5 ML VIAL SQ SCH (06:10)
[2020-11-26] MEDS: METOPROLOL SUCC 25MG EXT REL TAB PO SCH (07:55)
[2020-11-26] MEDS: ADVANCED PROBIOTIC 1250 MG CAPSULE PO SCH (07:55)
[2020-11-26] MEDS: CYANOCOBALAMIN (VITAMIN B-12) 100 MCG TABLET PO SCH (07:56)
[2020-11-26] MEDS: PANTOprazole 40 MG TAB PO SCH (07:57)
[2020-11-26] MEDS: ASCORBIC ACID 500 MG TAB PO SCH (07:57)
[2020-11-26] MEDS: CALCIUM 600MG + VIT D 400 IU TAB PO SCH (07:57)
[2020-11-26] MEDS: CEROVITE ADV FORMULA TAB PO SCH (07:57)
[2020-11-26] MEDS: CETIRIZINE HCL 10 MG TABLET PO PRN (07:58)
[2020-11-26] MEDS: SODIUM BICARBONATE 650 MG TAB PO SCH (07:59)
[2020-11-26] MEDS: POTASSIUM CHLORIDE CRTAB 20 MEQ TABCR PO SCH (08:01)
[2020-11-26 08:19] LABS: BUN Creatinine Ratio 23.2 (10-20); Calcium 8.7 mg/dl (8.5-10.1); Creatinine Clr Calc Pharmacy 46.5 ml/min; Est GFR (African American) 54.5 ml/min; Magnesium 1.5 mg/dl (1.8-2.4); Phosphorus 2.8 mg/dl (2.5-4.9); Potassium 3.8 mmol/L (3.5-5.1)
--- NOTE | 2020-11-26 10:43 | Nephrology Progress Note ---
Date of Service November 26, 2020 Assessment & Plan (1) Hypernatremia: Plan: Improved with IV free water replacement. Volume status acceptable. luids readily available at bedside. I encouraged Christian to drink liberally today. Please repeat labs as an outpatient on Sunday or Sunday next week. Follow up with me in the nephrology clinic within 2 weeks of discharge. (2) Metabolic acidosis: Plan: NAG. Kidney function improved. Oral replacement with 1300 NaHCO3 BID post discharge. (3) Acute renal failure: Plan: Diuretics held. NSAIDs held. Electrolytes acceptable. Remains on a daily KCl supplement. Improved with volume replacement. Follow up within 2 weeks of discharge. Continue KCl 40 mEq daily. (4) HTN (hypertension): Plan: BP acceptable. Diuretics held. Lisinopril held but may be restarted on discharge. Admission and Anticipated Discharge Date Admission Date: November 22, 2020 Subjective No acute events overnight. Christian would like to go home today. Appetite remains poor but improved. I discussed the plan of care with Dr. Fitch this AM. Review of Systems Review of Systems: All systems reviewed & are unremarkable except as noted in HPI & below Physical Exam Constitutional: well developed; no acute distress Eyes: no scleral abnormality and no corneal abnormality ENMT: Mouth: no oral mucosal abnormality and oral mucous membranes not dry Neck: normal visual inspection and trachea midline Respiratory: normal respiratory effort Auscultation: lungs clear to auscultation bilaterally Cardiovascular: Rate/Rhythm: regular rate Heart Sounds: normal S1 and normal S2 Extremities: no edema Musculoskeletal: Extremities: no cyanosis and no clubbing Skin: + turgor decreased; no lesions Neurologic: Motor/Sensory: no tremor and no asterixis Psychiatric: Orientation: alert and oriented x 3 Results & Data ([facility]) Vital Signs (Past 12 Hours) Vital Signs Temp Pulse Resp BP BP Pulse Ox 11/26/20 07:15 37 C 74 16 150/84 H 94 11/26/20 04:00 36.8 C 77 18 132/84 92 11/25/20 23:32 37.4 C 82 18 144/87 H 94 Laboratory Results Laboratory Results - last 24 hr 11/22/20 11/25/20 11/26/20 13:28 15:56 06:33 Sodium 144 147 H Potassium 3.1 L 3.8 D Chloride 117 H 121 H Carbon Dioxide 19 L 19 L Anion Gap 8.0 6.0 BUN 40 H 34 H Creatinine 1.62 H 1.46 H Est Cr Clr Drug Dosing 41.9 46.5 Est GFR ( Amer) 48.1 54.5 Est GFR (Non-Af Amer) 41.5 47.0 BUN/Creatinine Ratio 24.7 H 23.2 H Glucose 160 H 102 H Calcium 9.0 8.7 Phosphorus 1.9 L 2.8 Magnesium 1.5 L Albumin 3.0 L A. phagocytophilum DNA Negative PG Care Time/CCT Total # of Minutes Spent Total Time Spent with Patient: Total time spent is greater than 50% in coordination of care (as documented) at patient's floor/unit and/or counseling patient: Coding Level of Care Code 90948 Subseq Hosp Care Lvl 3 Diagnoses Hypernatremia E87.0 Metabolic acidosis E87.2 Acute renal failure N17.9 Acute renal failure type: unspecified HTN (hypertension) I10 (1) Acute renal failure Acute renal failure type: unspecified Qualified Code(s): N17.9 - Acute kidney failure, unspecified
[2020-11-26] MEDS ORDERED: MAGNESIUM OXIDE 400 MG TAB PO SCH (11:30)
--- NOTE | 2020-11-26 11:42 | Discharge Summary ---
Date of Service November 26, 2020 Admission HPI Per Admitting Provider This is a 75-year-old male with past medical history of GERD, hypertension, hyperlipidemia that presents complaining of failure to thrive. He is accompanied with his and both are good historians. Patient states that he recently had a severe ear infection. Not long after this, patient developed a Ballard's palsy of the right side of his face. He was seen in the emergency room on 10/18. He was discharged to his primary care physician saw him on 10/22. Not long after this, patient started having generalized fatigue. His appetite was quite poor and he was eating and drinking very little. He denied any overt fevers. He also denies any chest pain or shortness of breath. He did admit to the ER physician that he had some a mild cough. He denies any rashes, arthralgias, or myalgias. He does feel that his Ballard's palsy has improved significantly. Patient and admit that they did not have any further testing since his ER visit. Evaluation emergency room, patient was found to be acute renal failure which I suspect may be secondary to dehydration. His potassium is low and his white count is mildly elevated. Patient is now being admitted for further investigation of his dehydration and failure to thrive. Discharge Data Allergies Allergy/AdvReac Type Severity Reaction Status Date / Time amlodipine AdvReac Mild nausea Verified 11/22/20 20:10 Consultations 11/22/20 15:24 ED Decision to Admit Stat 11/23/20 08:16 Consult Nephrology Routine Ordered Studies 11/22/20 14:03 CT head/brain wo con Stat 11/22/20 17:53 CT chest diagnostic wo con Routine 11/23/20 07:51 US renal/blad retro comp Routine Hospital Course (1) Acute renal failure: Improving with IV fluids - appreciate nephrology management of this Suspect related to ibuprofen use from recent Ballard's palsy in setting of HCTZ/ACEi and poor oral intake US renal - no obstructive uropathy CK negative TTE - no pericardial effusion (2) Hypernatremia: Volume depleted on admission Resolved. (3) Metabolic acidosis: Hyperchloremia, although also has an anion gap, now resolved. Does not drink alcohol. Lactic acid - negative. Salicylate level - negative. Continue sodium bicarbonate - dose per nephrology recommendations. Appreciate nephrology recommendations. (4) Abnormal CT of the chest: Follow up CT in 4-6 weeks. Do not suspect pneumonia, procalcitonin negative. (5) Failure to thrive: Blood cultures negative to date. Initial lyme and anaplasmosis testing negative - stop doxycycline. Suspect this is mostly driven by his uremia. PT/OT continued evals and treatment as his strength improves. (6) Coronary artery disease: Continue medications as per outpatient including atorvastatin, metoprolol (7) Hyperlipidemia: Atorvastatin as noted above (8) Acid reflux: Omeprazole 20 mg as an outpatient, changed to pharmacy equivalent VTE Prophylaxis - heparin 5000 units Q8H SQ Disposition - transfer to medical Discharge Plan Discharge Items Reason For Visit: Failure to Thrive Discharge Diagnosis: Acute kidney failure Activity: Resume your previous activity Non-emergency contact: Database [employer] Call non-emergency contact if: you have any medication questions and your symptoms worsen Follow-up/Referrals: Luis F Castillo DO [Physician] - (Follow up 1-2 weeks) Katie Coelho MD [Primary Care Provider] - (no routine follow up required) Diet: Regular Ambulatory Orders: Basic Metabolic Panel (Routine) Timeframe: 20201129 Location: Determined by Patient Ordered By: Carlos Alberto Fitch Magnesium (Routine) Timeframe: 20201129 Location: Determined by Patient Ordered By: Carlos Alberto Fitch Phosphorus (Routine) Timeframe: 20201129 Location: Determined by Patient Ordered By: Carlos Alberto Ayers Attending Provider Instructions: You were admitted to [facility] [address] from November 22 - 2020 due to generalized weakness. You were diagnosed with acute kidney failure suspect secondary to ibuprofen use with poor appetite and diuretic use. This improved with intravenous fluids and sodium bicarbonate. Please take all prescriptions as below and follow up with your appeals assistant next week with repeat lab work as ordered. Kind regards, Dr Carlos Alberto Fitch Pending Studies at Discharge: No Stand-Alone Forms: My [facility], Smoking Cessation Medications and DC Order Prescriptions: New sodium bicarbonate 650 mg Tablet 1,300 mg PO BID Qty: 120 RF: 0 magnesium oxide 500 mg tablet 500 mg PO DAILY Qty: 30 RF: 0 Continued atorvastatin 80 mg tablet 80 mg PO QPM Qty: 90 RF: 3 metoprolol succinate 25 mg tablet extended release 24 hr 12.5 mg PO DAILY Qty: 45 RF: 5 Lacto.acidophilus-Bif.animalis 31 billion cell capsule 1 cap PO QAM RF: 0 omeprazole 20 mg capsule,delayed release(DR/EC) 20 mg PO QAM RF: 0 cyanocobalamin (vitamin B-12) 100 mcg tablet 100 mcg PO QAM RF: 0 vitamin E (dl, acetate) 400 unit capsule 400 units PO QAM RF: 0 multivitamin with minerals [Multiple Vitamin-Minerals] tablet 1 tab PO QAM RF: 0 cetirizine 10 mg tablet 10 mg PO DAILY PRN (Reason: allergy symptoms) Qty: 90 RF: 0 calcium carbonate 600 mg calcium (1,500 mg) tablet 600 mg PO QAM RF: 0 hydrocortisone 2.5 % cream 1 appln TOP BID PRN (Reason: UD) Qty: 30 RF: 1 ketoconazole 2 % cream 1 appln topical DAILY Qty: 30 RF: 0 promethazine-DM 6.25-15 mg/5 mL syrup 5 ml PO Q6H PRN (Reason: cough) Qty: 473 RF: 0 ascorbic acid (vitamin C) 500 mg tablet 500 mg PO QAM RF: 0 Changed potassium chloride 20 mEq tablet,ER particles/crystals 40 meq PO DAILY Qty: 90 RF: 3 Discontinued lisinopril 40 mg tablet 40 mg PO DAILY Qty: 90 RF: 1 hydrochlorothiazide 25 mg tablet 12.5 mg PO QAM RF: 0 Hold Instructions: Home Medication placed on hold at Doctor's office ibuprofen 200 mg tablet 200 mg PO Q6H PRN (Reason: fever or pain) RF: 0 acetazolamide 250 mg tablet 250 mg PO DAILY RF: 0 Admission Data Admit Date/Time: 11/22/20 17:53 Attending Provider: Carlos Alberto Fitch Admit Provider: Jama Yee Primary Care Provider: Katie Coelho Other Providers: Jama Yee ; Luis F Castillo Coding Diagnoses Acute renal failure N17.9 Acute renal failure type: unspecified Hypernatremia E87.0 Metabolic acidosis E87.[address] of the chest R93.89 Failure to thrive Coronary artery disease I25.10 Hyperlipidemia E78.5 Acid reflux K21.9
[2020-11-26] MEDS ORDERED: SODIUM BICARBONATE 650 MG TAB PO SCH (21:00)
== END 2020-11-26 14:31 | disposition home or self-care (01) | DRG 683 ==
LOC: ED 11:32 → 2N 17:53 → SUATTDRO 17:53 → 2N 19:25 → 2W 11-24 02:13